=== PATIENT | female | born 1950 | race Caucasian/White ===

== ENCOUNTER → 2020-07-03 13:43 | Outpatient (BNVA) | payer MEDICARE, SELFPAY | PROVIDERS: PCP Internal Medicine; Visit Provider Urology | DX: N81.10 Cystocele, unspecified (principal) | CPT/HCPCS: 81002; 99202 ==

== ENCOUNTER 2020-07-08 | Outpatient (REF) | payer MEDICARE, SELFPAY ==
[2020-07-08 11:40] LABS: Alanine Aminotransferase 52 U/L (0-31); Albumin Level 4.1 g/dL (3.5-5.0); Alkaline Phosphatase 109 U/L (39-117); Anion Gap 14 (12-20); Aspartate Amino Transferase 32 U/L (5-31); Bilirubin Total 0.4 mg/dL (0.0-1.0); Blood Urea Nitrogen 16 mg/dL (9-16); Calcium 9.5 mg/dL (8.4-10.2); Carbon Dioxide 25 mmol/L (22-29); Chloride 106 mmol/L (96-108); Cholesterol 178 mg/dL; Estimated Glomerular Filt Rate > 60; Glucose Fasting 130 mg/dL (60-99); HDL Cholesterol 43 mg/dL; LDL Cholesterol Calculated 105 mg/dl; Potassium 4.4 mmol/l (3.3-5.1); Sodium 141 mmol/L (135-145); Triglycerides 153 mg/dL
[2020-07-08 11:59] LABS: Creatinine Urine 59.24 mg/dL; Microalbumin Urine < 5.0 mg/L
[2020-07-13 17:58] LABS: Vitamin D 25-OH, D2 <4 ng/mL; Vitamin D 25-OH, D3 31 ng/mL; Vitamin D 25-OH, Total 31 ng/mL (30-100)
== END 2020-07-08 00:01 | disposition home or self-care (01) ==
LOC: HO.LHD
PROVIDERS: Visit Provider Internal Medicine
DX: E11.9 Type 2 diabetes mellitus without complications (principal); E55.9 Vitamin D deficiency, unspecified; E78.5 Hyperlipidemia, unspecified
CPT/HCPCS: 36415; 80053; 80061; 82043; 82306

== ENCOUNTER 2020-07-10 17:14 | Outpatient (REF) | payer MEDICARE, SELFPAY | END 2020-07-10 17:15 | disposition home or self-care (01) | LOC: HO.LAB 17:14 | PROVIDERS: PCP Internal Medicine; Visit Provider Internal Medicine | DX: Z20.822 Contact with and (suspected) exposure to COVID-19 (principal) | CPT/HCPCS: 36415; C9803; U0003 ==

== ENCOUNTER 2020-08-04 09:22 | Outpatient (REF) | payer OTHER, SELFPAY ==
--- NOTE | ~2020-08-04 | US_ITS ---
EXAMINATION: US COMPLETE ABDOMEN WITH LIVER ELASTOGRAPHY CLINICAL INFORMATION: Elevated levels of liver transaminase COMPARISON: Abdominal ultrasound 02/10/2017 TECHNIQUE: Real-time imaging of the abdominal viscera. Noninvasive ultrasound liver fibrosis assessment is performed using Prem ElastPQ point quantification shear wave elastography (pSWE) with a C5-2 MHz transducer. Multiple elastography samples are obtained. FINDINGS: PANCREAS: Normal. The visualized pancreatic head and body are normal in appearance. The remainder of the pancreas is obscured from visualization by the overlying bowel gas. ABDOMINAL AORTA: The proximal, middle, and distal aortic segments are normal in caliber. INFERIOR VENA CAVA: Visualized portions are normal. LIVER: There is diffusely increased hepatic echogenicity and sound attenuation consistent with diffuse hepatic steatosis. Areas of focal fatty sparing are seen as well. No suspicious or concerning focal liver lesion. No biliary ductal dilatation. The right lobe measures 11.9 cm in length. The left lobe measures 10.4 cm in length. Portal flow is hepatopetal Shear wave liver elastography median stiffness is 1.41 m/s (reference: normal median stiffness is 1.3 m/s or less). IQR/median stiffness to assess sampling precision is 0.04 (reference: good quality data set is IQR/median stiffness of 0.15 or less). GALLBLADDER: Normal. The gallbladder is physiologically distended without evidence of stones, sludge, polyps, wall thickening or pericholecystic fluid. COMMON BILE DUCT: Normal in caliber measuring 0.2 cm in diameter. RIGHT KIDNEY: Normal. No hydronephrosis. No renal calculi or focal parenchymal lesions. The kidney measures 9.5 cm in maximum dimension. LEFT KIDNEY: Normal. No hydronephrosis. No renal calculi or focal parenchymal lesions. The kidney measures 9.1 cm in maximum dimension. SPLEEN: Normal. The spleen measures 8.7 cm in maximum dimension. FREE FLUID: None. US/US abdomen comp w elastography IMPRESSION: 1. Diffuse hepatic steatosis with areas of focal fatty sparing. No concerning focal liver lesion. 2. Liver elastography: In the absence of other known clinical signs, measurements rule out compensated advanced chronic liver disease. If there are known clinical signs, further testing may be needed for confirmation REFERENCE: Society of Radiologists in Ultrasound Liver Stiffness Thresholds (2020): LIVER STIFFNESS THRESHOLDS: *Liver Stiffness equal or less than 1.3 m/s: High probability of being normal. *Liver Stiffness less than 1.7 m/s: In the absence of other known clinical signs, rules out compensated advanced chronic liver disease. *Liver Stiffness 1.7-2.1 m/s: Suggestive of compensated advanced chronic liver disease but need further test for confirmation. *Liver Stiffness over 2.1 m/s: Rules in compensated advanced chronic liver disease. *Liver Stiffness over 2.4 m/s: Suggestive of clinically significant portal hypertension. QUALITY OF DATA SET: *IQR/Median value equal or less than 0.15 implies a quality data set. *IQR/Median value over 0.15 implies a poor quality data set. SIGNIFICANT CHANGE FROM PRIOR EXAM: Significant change if liver stiffness measurement is 10% or greater from prior exam. OTHER CONSIDERATIONS: The stage of liver fibrosis may be overestimated in the setting of acute hepatitis, liver inflammation, elevated liver function tests, hepatic vascular congestion, obstructive cholestasis, non-fasting state, and infiltrative diseases such as amyloidosis and lymphoma. In some patients with NAFLD, the liver stiffness thresholds for compensated advanced chronic liver disease may be lower. In causes other than viral hepatitis and NAFLD, liver stiffness thresholds are not well established.
== END 2020-08-04 09:23 | disposition home or self-care (01) ==
LOC: HO.US 09:22
PROVIDERS: PCP Internal Medicine; Visit Provider Internal Medicine
DX: R74.01 Elevation of levels of liver transaminase levels (principal)
CPT/HCPCS: 76705; 76981

== ENCOUNTER → 2020-09-25 12:59 | Outpatient (BNVA) | payer MEDICARE, SELFPAY | PROVIDERS: PCP Internal Medicine; Visit Provider Urology | DX: N81.10 Cystocele, unspecified (principal) | CPT/HCPCS: 52000; 81002; 99212 ==

== ENCOUNTER 2020-10-21 11:26 | Outpatient (REF) | payer MEDICARE, SELFPAY ==
--- NOTE | ~2020-10-21 | MM_ITS ---
EXAMINATION: MM SCREENING DIGITAL BREAST TOMOSYNTHESIS, BILATERAL CLINICAL INFORMATION: Screening. Asymptomatic. The lifetime risk of breast cancer based on the Tyrer-Cuzick Model is 3%. COMPARISON: Mammography: 08/06/2019, 05/23/2018, 05/14/2018, 04/24/2017; targeted right breast ultrasound 05/23/2018 TECHNIQUE: Digital breast tomosynthesis is performed in both the craniocaudal and mediolateral oblique views along with computer-aided detection (CAD). Synthesized 2D images are generated from the tomosynthesis. FINDINGS: There are scattered areas of fibroglandular density (ACR BI-RADS breast composition Category b). There is chronic fibronodular and fibrocystic parenchymal pattern similar to prior studies. No focal developing density, significant mass, or architectural abnormality. No abnormal calcifications. The axilla and skin contours are unremarkable. No significant changes. MM/MM tomosynthesis screening BI IMPRESSION: No significant changes from prior exams. No mammographic evidence of malignancy. ASSESSMENT: BI-RADS 2: Benign RECOMMENDATION: Routine annual mammography screening. This patient's information was entered into a reminder system with a target due date for their next mammogram.
== END 2020-10-21 11:27 | disposition home or self-care (01) ==
LOC: HO.MAMMO 11:26
PROVIDERS: PCP Internal Medicine; Visit Provider Internal Medicine
DX: Z12.31 Encounter for screening mammogram for malignant neoplasm of breast (principal)
CPT/HCPCS: 77063; 77067

== ENCOUNTER 2021-03-01 08:16 | Outpatient (REF) | payer MEDICARE, SELFPAY ==
[2021-03-01 09:11] LABS: MANUAL DIFF FLAG NO
[2021-03-01 09:13] LABS: Basophils Percent Auto 0.3 % (0-2); Eosinophils Absolute Auto 0.1 X10*3/uL (0.0-0.4); Eosinophils Percent Auto 1.5 % (0-4); Hematocrit 42.2 % (37-47); Hemoglobin 14.1 g/dl (12.0-16.0); Imm Gran Abs Auto 0.02 X10*3/uL (0.00-0.03); Imm Gran Pct Auto 0.3 % (0.0-0.4); Lymphocytes Absolute Auto 2.2 X10*3/uL (1.2-4.9); Lymphocytes Percent Auto 32.2 % (20-40); Mean Corpuscular HGB Conc 33.4 g/dl (31.0-35.0); Mean Corpuscular Hemoglobin 30.1 pg (27.0-33.0); Mean Corpuscular Volume 90.2 fL (80-98); Mean Platelet Volume 12.6 fL (9.4-12.3); Monocytes Absolute Auto 0.6 X10*3/uL (0.1-1.2); Monocytes Percent Auto 8.6 % (2-11); Neutrophils Absolute Auto 3.8 X10*3/uL (2.0-8.3); Neutrophils Percent Auto 57.1 % (45-73); Platelet Count 218 X10*3/uL (160-400); Red Blood Count 4.68 X10*6/uL (4.20-5.50); Red Cell Distribution Width 12.4 % (11.0-16.0); White Blood Count 6.7 X10*3/uL (4.8-10.8)
[2021-03-01 09:39] LABS: Alanine Aminotransferase 74 U/L (0-31); Albumin Level 4.3 g/dL (3.5-5.0); Alkaline Phosphatase 106 U/L (39-117); Anion Gap 14 (12-20); Aspartate Amino Transferase 50 U/L (5-31); Bilirubin Total 0.4 mg/dL (0.0-1.0); Blood Urea Nitrogen 12 mg/dL (9-16); Calcium 9.8 mg/dL (8.4-10.2); Carbon Dioxide 24 mmol/L (22-29); Chloride 105 mmol/L (96-108); Cholesterol 171 mg/dL; Estimated Glomerular Filt Rate > 60; Glucose Fasting 156 mg/dL (60-99); HDL Cholesterol 41 mg/dL; LDL Cholesterol Calculated 103 mg/dl; Potassium 4.3 mmol/L (3.3-5.1); Sodium 139 mmol/L (135-145); Total Protein 7.2 g/dL (6.5-8.0); Triglycerides 139 mg/dL
[2021-03-01 10:02] LABS: Thyroid Stimulating Hormone 2.16 uIU/mL (0.32-4.0)
[2021-03-01 10:39] LABS: Creatinine Urine 28.54 mg/dL; Microalbum/Creatinine Ratio Ur 17.5 ug/mg cr
[2021-03-05 12:46] LABS: Vitamin D 25-OH, D2 <4 ng/mL; Vitamin D 25-OH, D3 36 ng/mL; Vitamin D 25-OH, Total 36 ng/mL (30-100)
== END 2021-03-01 08:17 | disposition home or self-care (01) ==
LOC: HO.LAB 08:16
PROVIDERS: PCP Internal Medicine; Visit Provider Internal Medicine
DX: E78.5 Hyperlipidemia, unspecified (principal); E55.9 Vitamin D deficiency, unspecified; D64.9 Anemia, unspecified; R41.3 Other amnesia; E11.9 Type 2 diabetes mellitus without complications
CPT/HCPCS: 36415; 80053; 80061; 82043; 82306; 84443; 85025

== ENCOUNTER 2021-03-18 12:27 | Outpatient (REF) | payer MEDICARE, SELFPAY ==
--- NOTE | ~2021-03-18 | XR_ITS ---
EXAMINATION: XR BOTH KNEES AP STANDING XR LEFT KNEE, 2 VIEWS CLINICAL INFORMATION: Pain. COMPARISON: None. TECHNIQUE: Standing AP view of both knees and lateral and sunrise views of the left knee. FINDINGS: Right Knee: Tiny medial compartment marginal osteophytes. No osseous erosion. No fracture or dislocation. No abnormal soft tissue calcification. Left Knee: Mild medial compartment joint space narrowing. Tiny tricompartmental marginal osteophytes. No osseous erosion. No fracture or dislocation. Trace joint effusion. No abnormal soft tissue calcification. XR/XR knee standing BI IMPRESSION: RIGHT KNEE: Mild medial compartment osteoarthritis. LEFT KNEE: Mild tricompartmental osteoarthritis. Trace joint effusion.
--- NOTE | ~2021-03-18 | XR_ITS ---
EXAMINATION: XR BOTH KNEES AP STANDING XR LEFT KNEE, 2 VIEWS CLINICAL INFORMATION: Pain. COMPARISON: None. TECHNIQUE: Standing AP view of both knees and lateral and sunrise views of the left knee. FINDINGS: Right Knee: Tiny medial compartment marginal osteophytes. No osseous erosion. No fracture or dislocation. No abnormal soft tissue calcification. Left Knee: Mild medial compartment joint space narrowing. Tiny tricompartmental marginal osteophytes. No osseous erosion. No fracture or dislocation. Trace joint effusion. No abnormal soft tissue calcification. XR/XR knee LT 2V IMPRESSION: RIGHT KNEE: Mild medial compartment osteoarthritis. LEFT KNEE: Mild tricompartmental osteoarthritis. Trace joint effusion.
== END 2021-03-18 12:28 | disposition home or self-care (01) ==
LOC: HO.HOSX 12:27
PROVIDERS: Visit Provider Physician Assistant
DX: M17.12 Unilateral primary osteoarthritis, left knee (principal)
CPT/HCPCS: 73560; 73565; 99202

== ENCOUNTER → 2021-03-30 13:18 | Outpatient (BNVA) | payer MEDICARE, SELFPAY | PROVIDERS: PCP Internal Medicine | DX: N81.10 Cystocele, unspecified (principal) | CPT/HCPCS: 99212 ==

== ENCOUNTER 2021-08-31 10:49 | Outpatient (REF) | payer MEDICARE, SELFPAY ==
--- NOTE | 2021-08-31 10:55 | ECG_ITS ---
Test Reason : cp Blood Pressure : / mmHG Vent. Rate : 069 BPM Atrial Rate : 069 BPM P-R Int : 150 ms QRS Dur : 080 ms QT Int : 388 ms P-R-T Axes : 063 -08 043 degrees QTc Int : 415 ms Normal sinus rhythm Nonspecific ST and T wave abnormality Abnormal ECG When compared with ECG of 27-AUG-2019 15:34, No significant change was found Referred By: Yvette Jacksno Electronically Signed By:SIMON ORTEGA
[2021-08-31 12:53] LABS: Alanine Aminotransferase 71 U/L (0-31); Albumin Level 4.2 g/dL (3.5-5.0); Alkaline Phosphatase 105 U/L (39-117); Anion Gap 13 (12-20); Aspartate Amino Transferase 47 U/L (5-31); Bilirubin Total 0.5 mg/dL (0.0-1.0); Blood Urea Nitrogen 10 mg/dL (9-16); Calcium 10.2 mg/dL (8.4-10.2); Carbon Dioxide 26 mmol/L (22-29); Chloride 107 mmol/L (96-108); Cholesterol 181 mg/dL; Estimated Glomerular Filt Rate > 60; Glucose Fasting 142 mg/dL (60-99); HDL Cholesterol 40 mg/dL; LDL Cholesterol Calculated 109 mg/dl; Potassium 4.3 mmol/L (3.3-5.1); Sodium 142 mmol/L (135-145); Total Protein 7.1 g/dL (6.5-8.0); Triglycerides 162 mg/dL
[2021-08-31 13:03] LABS: Creatinine Urine 90.89 mg/dL; Microalbum/Creatinine Ratio Ur 17.6 ug/mg cr
== END 2021-08-31 10:50 | disposition home or self-care (01) ==
LOC: HO.LAB 10:49
PROVIDERS: PCP Internal Medicine; Visit Provider Internal Medicine
DX: R07.9 Chest pain, unspecified (principal); K21.9 Gastro-esophageal reflux disease without esophagitis; E11.9 Type 2 diabetes mellitus without complications; E78.5 Hyperlipidemia, unspecified
CPT/HCPCS: 36415; 80053; 80061; 82043; 93005

== ENCOUNTER 2021-10-15 14:09 | Outpatient (REF) | payer MEDICARE, SELFPAY ==
--- NOTE | ~2021-10-15 | MM_ITS ---
EXAMINATION: BONE DENSITOMETRY CLINICAL INDICATION: Menopause. COMPARISON: Previous BD dated 05/03/2019 and baseline BD dated 10/16/2009. TECHNIQUE: Using a Fantom DXA System (software version: 13.1) manufactured by [employer], dual-energy x-ray absorptiometry was performed of the lumbar spine and left hip. The images are of good technical quality. Summary results are attached. FINDINGS: AP SPINE L1-L4: Current: BMD 1.036 g/cm2, Z-score 0.4, T-score -1.2, osteopenia, 1.0% increase from previous, 0.6% increase from baseline (<5% change is not significant). Prior: BMD 1.026 g/cm2. Baseline: BMD 1.030 g/cm2. LEFT FEMUR, NECK: Current: BMD 0.848 g/cm2, Z-score 0.4, T-score -1.4, osteopenia. Prior: BMD 0.896 g/cm2. Baseline: BMD 1.061 g/cm2. LEFT FEMUR, TOTAL: Current: BMD 0.937 g/cm2, Z-score 1.0, T-score -0.6, normal, 2.0% decrease from previous, 16.4% decrease from baseline (<5% change is not significant). Prior: BMD 0.956 g/cm2. Baseline: BMD 1.121 g/cm2. IDENTIFIED RISK FACTORS: Early menopause, bilateral oophorectomy, height loss, hysterectomy, secondary osteoporosis. HISTORY OF FRACTURE: None listed. MEDICATIONS: Vitamin D. MM/XR DEXA axial skeleton IMPRESSION: 1. DIAGNOSIS: Osteopenia based on the lowest T-score value of -1.4 in the femoral neck applying World Health Organization criteria. 2. 10-YEAR FRACTURE RISK PREDICTION, FRAX: Major osteoporotic fracture (clinical spine, forearm, hip or shoulder) 5.9%. Hip fracture 1.0%. 3. Treatment Recommendations: NOF guidelines recommend consideration for treatment in postmenopausal women and men age 50 and older presenting with the following: -A hip or vertebral (clinical or morphometric) fracture. -T-score less than or equal to -2.5 at the femoral neck or spine after appropriate evaluation to exclude secondary causes. -Low bone mass at the hip or spine and a 10-year fracture probability by FRAX of greater than or equal to 3% for hip fracture or greater than or equal to 20% for major osteoporotic fracture based on the [place] adapted WHO algorithm. 4. Other Recommendations: All treatment decisions require clinical judgment and consideration of individual patient factors, including patient preferences, comorbidities, previous drug use, risk factors not captured in the FRAX model (e.g. frailty, falls, vitamin D deficiency, increased bone turnover, interval significant decline in bone density) and possible under or overestimation of fracture risk by FRAX. Additional medical evaluation for secondary cause of low bone mineral density may be appropriate. FUTURE SCAN RECOMMENDATION: People with diagnosed cases of osteoporosis or at high risk for fracture should have regular bone mineral density tests. For patients eligible for Medicare, routine testing is allowed once every 2 years. The testing frequency can be increased to one year for patients who have rapidly progressing disease, those who are receiving or discontinuing medical therapy to restore bone mass, or have additional risk factors.
== END 2021-10-15 14:10 | disposition home or self-care (01) ==
LOC: HO.MAMMO 14:09
PROVIDERS: PCP Internal Medicine; Visit Provider Internal Medicine
DX: Z13.820 Encounter for screening for osteoporosis (principal); Z78.0 Asymptomatic menopausal state; M85.80 Other specified disorders of bone density and structure, unspecified site
CPT/HCPCS: 77080

== ENCOUNTER 2021-10-25 13:48 | Outpatient (REF) | payer MEDICARE, SELFPAY ==
--- NOTE | ~2021-10-25 | MM_ITS ---
EXAMINATION: MM SCREENING DIGITAL BREAST TOMOSYNTHESIS, BILATERAL CLINICAL INFORMATION: Screening. Asymptomatic. The lifetime risk of breast cancer based on the Tyrer-Cuzick Model is 2%. COMPARISON: Mammography: 10/21/2020, 08/06/2019, 05/23/2018 TECHNIQUE: Digital breast tomosynthesis is performed in both the craniocaudal and mediolateral oblique views along with computer-aided detection (CAD). Synthesized 2D images are generated from the tomosynthesis. FINDINGS: There are scattered areas of fibroglandular density (ACR BI-RADS breast composition Category b). Parenchymal pattern is similar to prior studies. There is no developing density or interval architectural abnormality or abnormal calcifications. Fine nodularity mid medial right breast is stable. There axilla and skin contours are unremarkable. No significant changes. MM/MM tomosynthesis screening BI IMPRESSION: No mammographic evidence of malignancy. ASSESSMENT: BI-RADS 2: Benign RECOMMENDATION: Routine annual mammography screening. This patient's information was entered into a reminder system with a target due date for their next mammogram.
== END 2021-10-25 13:49 | disposition home or self-care (01) ==
LOC: HO.MAMMO 13:48
PROVIDERS: Visit Provider Internal Medicine
DX: Z12.31 Encounter for screening mammogram for malignant neoplasm of breast (principal)
CPT/HCPCS: 77063; 77067

== ENCOUNTER 2022-03-14 08:15 | Outpatient (REF) | payer OTHER, SELFPAY ==
[2022-03-14 08:28] LABS: MANUAL DIFF FLAG NO
[2022-03-14 08:36] LABS: Basophils Percent Auto 0.3 % (0-2); Eosinophils Absolute Auto 0.1 X10*3/uL (0.0-0.4); Eosinophils Percent Auto 1.4 % (0-4); Hematocrit 40.3 % (37.0-47.0); Hemoglobin 13.5 g/dl (12.0-16.0); Imm Gran Abs Auto 0.02 X10*3/uL (0.00-0.03); Imm Gran Pct Auto 0.3 % (0.0-0.4); Lymphocytes Absolute Auto 2.4 X10*3/uL (1.2-4.9); Lymphocytes Percent Auto 38.6 % (20-40); Mean Corpuscular HGB Conc 33.5 g/dl (31.0-35.0); Mean Corpuscular Hemoglobin 30.1 pg (27.0-33.0); Mean Platelet Volume 11.6 fL (9.4-12.3); Monocytes Absolute Auto 0.5 X10*3/uL (0.1-1.2); Monocytes Percent Auto 7.5 % (2-11); Neutrophils Absolute Auto 3.2 x10*3/uL (2.0-8.3); Neutrophils Percent Auto 51.9 % (45-73); Platelet Count 212 X10*3/uL (160-400); Red Blood Count 4.48 X10*6/uL (4.20-5.50); Red Cell Distribution Width 12.6 % (11.0-16.0); White Blood Count 6.3 X10*3/uL (4.8-10.8)
[2022-03-14 09:16] LABS: Iron 108 mcg/dL (30-160); Percent Iron Saturation 33 % (15-50); Total Iron Binding Capacity 327 mcg/dL (228-428); Unsaturated Iron Binding 219 ug/dL
== END 2022-03-14 08:16 | disposition home or self-care (01) ==
LOC: HO.LAB 08:15
PROVIDERS: PCP Internal Medicine; Visit Provider Internal Medicine
DX: Z20.822 Contact with and (suspected) exposure to COVID-19 (principal); K92.1 Melena; D64.9 Anemia, unspecified
CPT/HCPCS: 83540; 85025; U0003; U0005

== ENCOUNTER 2022-04-06 08:43 | Outpatient (REF) | payer OTHER, SELFPAY ==
[2022-04-06 09:36] LABS: Alanine Aminotransferase 47 U/L (0-31); Albumin Level 4.3 g/dL (3.5-5.0); Alkaline Phosphatase 114 U/L (39-117); Anion Gap 16 (12-20); Aspartate Amino Transferase 39 U/L (5-31); Bilirubin Total 0.3 mg/dL (0.0-1.0); Blood Urea Nitrogen 12 mg/dL (9-16); Calcium 9.7 mg/dL (8.4-10.2); Carbon Dioxide 25 mmol/L (22-29); Chloride 106 mmol/L (96-108); Cholesterol 166 mg/dL; Estimated Glomerular Filt Rate > 60; Glucose Fasting 140 mg/dL (60-99); HDL Cholesterol 40 mg/dL; LDL Cholesterol Calculated 95 mg/dl; Sodium 143 mmol/L (135-145); Total Protein 7.4 g/dL (6.5-8.0); Triglycerides 157 mg/dL
[2022-04-06 10:00] LABS: Creatinine Urine 74.38 mg/dL; Microalbum/Creatinine Ratio Ur 36.3 ug/mg cr
== END 2022-04-06 08:44 | disposition home or self-care (01) ==
LOC: HO.LDS 08:43
PROVIDERS: PCP Internal Medicine; Visit Provider Internal Medicine
DX: E11.9 Type 2 diabetes mellitus without complications (principal); E78.5 Hyperlipidemia, unspecified; E55.9 Vitamin D deficiency, unspecified
CPT/HCPCS: 36415; 80053; 80061; 82043; 82306

== ENCOUNTER → 2022-07-20 13:48 | Outpatient (BNVA) | payer OTHER, SELFPAY | PROVIDERS: PCP Internal Medicine; Visit Provider Obstetrics & Gynecology | DX: N93.9 Abnormal uterine and vaginal bleeding, unspecified (principal) | CPT/HCPCS: 99212 ==

== ENCOUNTER → 2022-07-27 14:10 | Outpatient (BNVA) | payer OTHER, SELFPAY | PROVIDERS: PCP Internal Medicine; Referring Provider Internal Medicine; Visit Provider Internal Medicine | DX: K92.1 Melena (principal); K62.5 Hemorrhage of anus and rectum | CPT/HCPCS: 99202 ==

== ENCOUNTER 2022-09-13 09:51 | Outpatient (REF) | payer OTHER, MEDICAID, SELFPAY ==
[2022-09-13 10:21] LABS: Hematocrit 40.8 % (37.0-47.0); Hemoglobin 13.5 g/dl (12.0-16.0); Mean Corpuscular HGB Conc 33.1 g/dl (31.0-35.0); Mean Corpuscular Hemoglobin 29.7 pg (27.0-33.0); Mean Corpuscular Volume 89.7 fL (80.0-98.0); Mean Platelet Volume 11.5 fL (9.4-12.3); Platelet Count 201 X10*3/uL (160-400); Red Blood Count 4.55 X10*6/uL (4.20-5.50); Red Cell Distribution Width 12.5 % (11.0-16.0); White Blood Count 6.5 X10*3/uL (4.8-10.8)
[2022-09-13 11:02] LABS: Alanine Aminotransferase 40 U/L (0-31); Albumin Level 4.2 g/dL (3.5-5.0); Alkaline Phosphatase 97 U/L (39-117); Anion Gap 13 (12-20); Aspartate Amino Transferase 35 U/L (5-31); Bilirubin Total 0.6 mg/dL (0.0-1.0); Blood Urea Nitrogen 12 mg/dL (9-16); Calcium 9.6 mg/dL (8.4-10.2); Carbon Dioxide 27 mmol/L (22-29); Chloride 107 mmol/L (96-108); Cholesterol 122 mg/dL; Estimated Glomerular Filt Rate > 60; Glucose Fasting 146 mg/dL (60-99); HDL Cholesterol 45 mg/dL; Iron 101 mcg/dL (30-160); LDL Cholesterol Calculated 54 mg/dl; Percent Iron Saturation 36 % (15-50); Potassium 4.3 mmol/L (3.3-5.1); Sodium 143 mmol/L (135-145); Total Iron Binding Capacity 283 mcg/dL (228-428); Total Protein 6.9 g/dL (6.5-8.0); Triglycerides 115 mg/dL; Unsaturated Iron Binding 182 ug/dL
[2022-09-13 11:17] LABS: Vitamin D 25-OH Total 55.1 ng/mL (>30)
[2022-09-13 11:18] LABS: Ferritin 75 ng/mL (10-250)
[2022-09-13 11:50] LABS: Creatinine Urine 123.42 mg/dL; Microalbum/Creatinine Ratio Ur 13.7 ug/mg cr
== END 2022-09-13 09:52 | disposition home or self-care (01) ==
LOC: HO.LAB 09:51
PROVIDERS: Internal Medicine; PCP Internal Medicine; Visit Provider Internal Medicine
DX: E78.00 Pure hypercholesterolemia, unspecified (principal); E11.9 Type 2 diabetes mellitus without complications; E55.9 Vitamin D deficiency, unspecified; E78.5 Hyperlipidemia, unspecified; K92.1 Melena
CPT/HCPCS: 36415; 80053; 80061; 82043; 82306; 82728; 83540; 85027

== ENCOUNTER 2022-09-22 07:15 | Day surgery (SDC) | payer OTHER, MEDICAID, SELFPAY ==
[2022-09-16 12:48] VITALS: BMI 26.5
--- NOTE | 2022-09-22 07:56 | P.CONAN_ITS ---
[facility] Active Problems Active Problems: All Active Problems (Updated 09/21/22 @ 09:24 by Yvette Jackson MD) Mild major depression (Acute) Osteoarthritis of left knee (Acute) Oral candidiasis (Acute) Melena (Acute) Vaginal dryness (Acute) Vaginal bleeding (Acute) Rectal bleeding (Acute) Medicare annual wellness visit, subsequent (Acute) Encounter for Medicare annual wellness exam (Acute) Postmenopausal (Acute) Chest pain (Acute) Pure hypercholesterolemia (Acute) Left knee pain (Acute) GERD (gastroesophageal reflux disease) (Acute) Memory loss (Acute) Tinea pedis (Acute) Transaminitis (Acute) Vaginal prolapse (Acute) Hypovitaminosis D (Acute) Diabetes mellitus (Acute) Essential hypertension (Acute) Past Medical History Medical History Chest pain Diabetes mellitus Encounter for Medicare annual wellness exam Essential hypertension GERD (gastroesophageal reflux disease) Hypovitaminosis D Left knee pain Memory loss Postmenopausal Pure hypercholesterolemia Tinea pedis Transaminitis Vaginal prolapse Patient : No Family History Family History Mother No problems noted. Father No problems noted. Surgical History Surgical History H/O: hysterectomy Hx of colonoscopy Social History Social History Housing: Apartment Alcohol intake: never Patient Tobacco Use Status: Never used Tobacco e-Cigarette/Vaping Use: Never Used Second Hand Smoke Exposure: No service: No Current occupational status: retired Current occupation: rt hand Cognitive needs: No Hearing needs: No Vision needs: Yes (Glasses) Meds Allergies Allergy/AdvReac Type Severity Reaction Status Date / Time No Known Allergies Allergy Verified 09/14/22 14:47 Exam Exam Date and Time: September 22, 2022 0756 Height,Weight and Vital Signs: Height 5 ft 2 in Weight 65.771 kg Airway Mallampati Class: II TM Dist: >3cm Neck ROM: Full Heart: RRR Lungs: CTA Assessment and Plan Final Anesthetic Review ASA Class: II Final Preanesthetic Review: Meds/Allgs Chart Reviewed, Consent Obtained/Reviewed and Anes Risks/Benef Reviewed Patient Risk: Low Procedure Risk: Low Anesthetic Plan Anesthetic Plan: MAC: Disposition: Standard PACU
[2022-09-22 07:57] VITALS: BP 126/75; PULSE 74; RESP 16; TEMP 36.3; O2SAT 97
[2022-09-22 08:04] LABS: Glucose, Whole Blood 151 mg/dL (60-115)
--- NOTE | 2022-09-22 08:19 | MHC.SHP ---
Pre-Procedural Eval Section A Date of Service: 09/22/22 Section B Chief Complaint: Personal history of colonic polyps,rectal bleeding Details of Present Illness: PMH: Chest pain Diabetes mellitus Encounter for Medicare annual wellness exam Essential hypertension GERD (gastroesophageal reflux disease) Hypovitaminosis D Left knee pain Memory loss Postmenopausal Pure hypercholesterolemia Tinea pedis Transaminitis Vaginal prolapse Surgical History H/O: hysterectomy Hx of colonoscopy Allergies: Allergies Allergy/AdvReac Type Severity Reaction Status Date / Time No Known Allergies Allergy Verified 09/14/22 14:47 Review of Systems Review of Systems Comment: 10 point ROS negative Exam Exam Comment: Gen appear: No acute distress HEENT: no icterus Chest: No overt resp distress Abd: soft, nontender, nondistended Psych: Stable affect, answering questions appropriately Neuro: A/Ox3 noted to move all extremities spontaneously Ext: no peripheral edema Plan Diagnosis/Plan: Unchanged I have reviewed the history and physical and performed a pertinent physical examination on my patient. No changes have occurred unless specified. Time Spent With Patient Time: Total time managing care of this patient today ____ minutes.
--- NOTE | 2022-09-22 08:25 | P.OP_ITS ---
Operative Note Operative Note Date of Service: 09/22/22 Narrative: Procedure: Colonoscopy Indication: Personal history of polyps Lower GI bleeding Endoscopist: Melany Calvert MD Anesthesia Provider: Dr Marcela Warren Anesthesia type: MAC Instrument: Olympus [id number]-H190L Consent: Indication, risks vs benefits, and alternatives were discussed with the patient who gave written informed consent to proceed. EKG, pulse, pulse oximetry and blood pressure were monitored throughout the procedure. Please see anesthesia flowsheet. Procedure: The patient was brought to the procedure room and placed in the left lateral decubitus position. IV medications were administered by the anesthesia provider in attendance. A digital rectal exam was performed which was abnormal due to finding of hemorrhoids. A distal attachment cap was affixed to the tip of the scope and the colonoscope was then inserted through the anus and advanced through the colon to the cecum at 80 cm,and terminal ileum. Mucosa was carefully examined under high definition white light as the instrument was slowly withdrawn in a retrograde panoramic fashion. Retroflexion was performed in rectum. The procedure was not difficult. There were no immediate obvious complications. The quality of the prep was BBPS: 2+3+2 = adequate Withdrawal time 8 minutes. Limitations: No limitations. Findings: Mucosa: A small non-bleeding arterioveneous malformation was seen in ascending colon. This was ablated with APC. Mucosa otherwise normal to cecum and terminal ileum. Protruding lesions: * 1 sessile polyp of size 5 mm in sigmoid colon. Cold snare polypectomy was performed. The polyp was completely removed and retrieved. * 1 sessile polyp of size 8 mm in cecum . Cold snare polypectomy was performed. The polyp was completely removed and retrieved. * Large internal hemorrhoids without stigmata of recent bleeding. Impression: 1. Ascending colon AVM (APC) 2. Total of 2 polyps removed from cecum and sigmoid colon. 3. External and internal hemorrhoids Recommendations: - Follow path results. - Repeat colonoscopy in 5-7 years if polyps are adenomas or sessile serrated.
[2022-09-22 09:10] VITALS: BP 96/51; PULSE 62; RESP 16; TEMP 36.1; O2SAT 97
[2022-09-22 09:25] VITALS: BP 115/58; PULSE 53; RESP 18; TEMP 36; O2SAT 97
--- NOTE | 2022-09-22 09:38 | HO.POSTANES ---
Post Anesthesia Evaluation Post Anesthesia Evaluation Vital Signs: Vital Signs Temp Pulse Resp BP Pulse Ox O2 Del Method 09/22/22 09:10 96.9 F 62 16 96/51 L 97 Room Air 09/22/22 07:57 97.4 F 74 16 126/75 97 Room Air Anesthesia: Monitored Mental Status: Awake Pain Control: Satisfactory Nausea/Vomiting: None Hydration: Adequate Anesthesia-Related Issues: No Anes. Related Issues
== END 2022-09-22 10:11 | disposition home or self-care (01) ==
PROVIDERS: PCP Internal Medicine; Visit Provider Internal Medicine
PROC: 0DJD8ZZ Inspection of Lower Intestinal Tract, Via Natural or Artificial Opening Endoscopic (ICD-10-PCS; CPT 45378; principal; 2022-09-22 08:40)
DX: K62.5 Hemorrhage of anus and rectum (principal); D12.0 Benign neoplasm of cecum; D12.5 Benign neoplasm of sigmoid colon; K64.4 Residual hemorrhoidal skin tags; K64.8 Other hemorrhoids; Q27.39 Arteriovenous malformation, other site; Z86.010 Personal history of colon polyps; E11.9 Type 2 diabetes mellitus without complications; I10 Essential (primary) hypertension
CPT/HCPCS: 45385; 82947; 88305

== ENCOUNTER → 2022-09-26 13:48 | Outpatient (BNVA) | payer OTHER, MEDICAID, SELFPAY | PROVIDERS: PCP Internal Medicine; Visit Provider Urology | DX: N81.10 Cystocele, unspecified (principal); N95.2 Postmenopausal atrophic vaginitis; N36.8 Other specified disorders of urethra | CPT/HCPCS: 99212 ==

== ENCOUNTER 2022-11-16 14:27 | Outpatient (REF) | payer OTHER, MEDICAID, SELFPAY ==
--- NOTE | ~2022-11-16 | MM_ITS ---
EXAMINATION: MM SCREENING DIGITAL BREAST TOMOSYNTHESIS, BILATERAL CLINICAL INFORMATION: Screening. Asymptomatic. The lifetime risk of breast cancer based on the Tyrer-Cuzick Model is 2%. COMPARISON: Mammography: 10/25/2021, 10/21/2020, 08/06/2019 TECHNIQUE: Digital breast tomosynthesis is performed in both the craniocaudal and mediolateral oblique views along with computer-aided detection (CAD). Synthesized 2D images are generated from the tomosynthesis. FINDINGS: There are scattered areas of fibroglandular density (ACR BI-RADS breast composition Category b). There is a fibronodular parenchymal pattern similar to prior exams with no developing density or architectural abnormality. There are no significant masses, abnormal calcifications, or other abnormalities. There are scattered benign round and vascular calcifications. The axilla and skin contours are unremarkable. No significant changes from prior exams. MM/MM tomosynthesis screening BI IMPRESSION: No mammographic evidence of malignancy. ASSESSMENT: BI-RADS 2: Benign RECOMMENDATION: Routine annual mammography screening. This patient's information was entered into a reminder system with a target due date for their next mammogram.
== END 2022-11-16 14:28 | disposition home or self-care (01) ==
LOC: HO.MAMMO 14:27
PROVIDERS: PCP Internal Medicine; Visit Provider Internal Medicine
DX: Z12.31 Encounter for screening mammogram for malignant neoplasm of breast (principal)
CPT/HCPCS: 77063; 77067

== ENCOUNTER → 2022-12-05 13:28 | Outpatient (BNVA) | payer OTHER, SELFPAY | PROVIDERS: Visit Provider Internal Medicine | DX: K92.1 Melena (principal); Z86.010 Personal history of colon polyps | CPT/HCPCS: 99212 ==

== ENCOUNTER 2022-12-15 09:11 | Outpatient (REF) | payer OTHER, SELFPAY ==
[2022-12-15 11:01] LABS: Alanine Aminotransferase 28 U/L (0-31); Alkaline Phosphatase 96 U/L (39-117); Anion Gap 12 (12-20); Aspartate Amino Transferase 26 U/L (5-31); Bilirubin Total 0.5 mg/dL (0.0-1.0); Blood Urea Nitrogen 10 mg/dL (9-16); Calcium 10.1 mg/dL (8.4-10.2); Carbon Dioxide 27 mmol/L (22-29); Chloride 107 mmol/L (96-108); Cholesterol 123 mg/dL; Estimated Glomerular Filt Rate > 60; Glucose Fasting 147 mg/dL (60-99); HDL Cholesterol 40 mg/dL; LDL Cholesterol Calculated 54 mg/dl; Sodium 142 mmol/L (135-145); Total Protein 7.4 g/dL (6.5-8.0); Triglycerides 149 mg/dL
[2022-12-15 11:16] LABS: Vitamin D 25-OH Total 48.2 ng/mL (>30)
[2022-12-15 11:37] LABS: Creatinine Urine 61.84 mg/dL; Microalbum/Creatinine Ratio Ur 17.7 ug/mg cr
== END 2022-12-15 09:12 | disposition home or self-care (01) ==
LOC: HO.LAB 09:11
PROVIDERS: PCP Internal Medicine; Visit Provider Internal Medicine
DX: E55.9 Vitamin D deficiency, unspecified (principal); E11.9 Type 2 diabetes mellitus without complications; E78.5 Hyperlipidemia, unspecified
CPT/HCPCS: 36415; 80053; 80061; 82043; 82306

== ENCOUNTER 2023-01-17 13:58 | Outpatient (AMB) | payer OTHER, MEDICAID, SELFPAY ==
--- NOTE | 2023-01-17 14:04 | MHC.PC.OV ---
Vital Signs 01/17/23 14:08 Height 5 ft 2 in Weight 149 lb BMI 27.2 BP 130/70 Blood Pressure Location Lt brachial Position Sitting Intake Visit Reasons: 4 month f/u Intake Note: Patient here for a 4 month follow up, c/o cold/allergies Lead Qa Analyst Required: No Accompanied by: Self / Same As Patient Allergies No Known Allergies Allergy (Verified 01/17/23 14:21) Medication List - Last Reconciled 01/17/23 by Yvette Jackson MD amlodipine 5 mg PO DAILY 90 days aspirin 81 mg PO DAILY blood sugar diagnostic Use 1 freestyle test strip once a day calcium carbonate-vitamin D3 500 mg-5 mcg (200 unit) 2 tabs PO DAILY 90 days metformin 850 mg PO BID 90 days nystatin 1 mL buccal DAILY 60 days omeprazole 20 mg PO DAILY 30 days oxybutynin chloride 10%(100mg/gram) (Gelnique) 1 packet topical DAILY rosuvastatin 10 mg PO DAILY 90 days sertraline 25 mg PO DAILY 90 days Tobacco use date assessed: 01/17/23 Fall risk assessment: No Falls in past year Last assessed Fall Risk: 01/17/23 Dental Screening Dental Screen Date: 01/17/23 Did you have a dental visit in the last 12 months?: Yes Did you have a dental problem in the last 6 months where you did not have access to dental care?: No Was dental information given to patient?: Patient has dentist HPI HPI Comments History of Present Illness Details This is a 72-year-old female with diabetes mellitus type 2, hypertension, pure hypercholesterolemia and mild major depression that comes today complaining of seasonal allergies. A1c elevated but she admits that she stop metformin and started taking it again yesterday. Blood pressure stable. LDL within goal. Depression well controlled with SSRIs. I will prescribe antihistamines as needed for her allergies. No chest pain or shortness of breath. [facility] Medical History Chest pain Diabetes mellitus Encounter for Medicare annual wellness exam Essential hypertension GERD (gastroesophageal reflux disease) Hypovitaminosis D Left knee pain Memory loss Postmenopausal Pure hypercholesterolemia Tinea pedis Transaminitis Vaginal prolapse Surgical History H/O: hysterectomy Hx of colonoscopy Family History Mother No problems noted. Father No problems noted. Social History Housing: Apartment Alcohol intake: never Patient Tobacco Use Status: Never used Tobacco e-Cigarette/Vaping Use: Never Used Second Hand Smoke Exposure: No service: No Current occupational status: retired Current occupation: rt hand Cognitive needs: No Hearing needs: No Vision needs: Yes (Glasses) Questionnaire Thrive Questionnaire Date Thrive assessed: 09/14/22 NORRIS-7 AMB Questionnaire NORRIS-7 Date NORRIS - 7 assessed: 09/14/22 Source: Developed by Drs. Steve Mead, Maria C Cope, Santos Villaseñor and colleagues, with an educational matti from [employer]. Review of Systems Const All systems reviewed & are unremarkable except as noted in HPI and below Eyes Reports no additional complaints, Denies change in vision and Denies other visual disturbances Card Denies chest pain at rest, Denies chest pain with activity, Denies edema, Denies irregular heart rhythm, Denies claudication, Denies dyspnea, Denies dyspnea on exertion, Denies orthopnea, Denies paroxysmal nocturnal dyspnea and Denies slow heart rate Resp Denies cough, Denies dyspnea and Denies dyspnea on exertion GI Denies abdominal pain, Denies change in bowel habits, Denies excessive flatus, Denies nausea and Denies vomiting Denies urinary incontinence, Denies urinary hesitancy and Denies urinary urgency Musc Denies abnormal gait, Denies atrophy, Denies deformity and Denies limited range of motion Skin/Breast Denies bleeding lesions, Denies changing lesions and Denies rash Neuro Denies abnormal gait and Denies lack of coordination Physical exam (Primary Care) Vital Signs: Last Vital Signs BP 130/70 01/17/23 14:08 BMI result Body Mass Index 27.2 Tobacco/Smoking Status: Tobacco use Status Tobacco use date assessed 01/17/23 01/17/23 14:11 Patient Tobacco Use Status Never used Tobacco 01/17/23 14:11 e-Cigarette/Vaping Use Never Used 01/17/23 14:11 Thrive Assessment: Date of Thrive Assessment Date Thrive assessed 09/14/22 01/17/23 14:11 Eyes General: appearance normal, both eyes and all related structures Eyelids: Yes eyelids normal Conjunctivae: conjunctivae normal Neck Neck: Yes normal visual inspection and Yes supple Resp Effort & Inspection: normal respiratory effort Auscultation: clear to auscultation bilaterally Cardio Jugular venous distension: no JVD Rate: regular rate Rhythm: regular rhythm Heart sounds: S1 normal heart sound present and S2 normal heart sound present Extrem General: Yes full ROM Results AMB Hemoglobin A1c AMB Hemoglobin A1c 7.3 % Last Edit by SONIA Pennington on 01/17/23 14:22 Results Reviewed Results Reviewed: Laboratory Last Values Hgb A1c (Clinic) 7.3 % (4.0-6.0) H 01/17/23 14:04 Assessment and Plan Assessment & Plan (1) Diabetes mellitus: Code(s): E11.9 - Type 2 diabetes mellitus without complications Qualifiers: Diabetes mellitus type: type 2 Diabetes mellitus assisted insulin use: without assisted use Diabetes mellitus complication status: without complication Qualified Code(s): E11.9 - Type 2 diabetes mellitus without complications Plan: Continue metformin. A1c goal is equal or less than 7%. (2) Essential hypertension: Code(s): I10 - Essential (primary) hypertension Plan: Continue amlodipine. Blood pressure goal is equal or less than 130/80. (3) Pure hypercholesterolemia: Code(s): E78.00 - Pure hypercholesterolemia, unspecified Plan: Continue statins. LDL goal is less than 70. (4) Mild major depression: Code(s): F32.0 - Major depressive disorder, single episode, mild Plan: Continue SSRIs Orders: Orders Lipid Panel 4 Months E78.5 - Hyperlipidemia, unspecified Vitamin D 25-OH Total 4 Months E55.9 - Vitamin D deficiency, unspecified Microalbumin, Random (w Creat) 4 Months E11.9 - Type 2 diabetes mellitus without complications Comprehensive [place]. Panel Fast 4 Months E11.9 - Type 2 diabetes mellitus without complications AMB Hemoglobin A1c Today E11.9 - Type 2 diabetes mellitus without complications Medications: New loratadine (Allergy Relief (loratadine)) 10 mg PO DAILY PRN 90 tabs 1RF allergic symptoms 90 days Coding Level of Care Code Est Pt Level 4 (67009) Diagnoses Diabetes mellitus E11.9 Diabetes mellitus type: type 2 Diabetes mellitus assisted insulin use: without regional intermodal truck driver use Diabetes mellitus complication status: without complication Essential hypertension I10 Pure hypercholesterolemia E78.00 Mild major depression F32.0 Time Spent (min) 22
[2023-01-17 14:08] VITALS: BP 130/70; BMI 27.2
== END 2023-01-17 14:32 | disposition home or self-care (01) ==
PROVIDERS: Visit Provider Internal Medicine
DX: E11.9 Type 2 diabetes mellitus without complications (principal); I10 Essential (primary) hypertension; E78.00 Pure hypercholesterolemia, unspecified; F32.0 Major depressive disorder, single episode, mild
CPT/HCPCS: 83036; 99214

== ENCOUNTER 2023-05-25 09:01 | Outpatient (REF) | payer OTHER, SELFPAY ==
[2023-05-25 10:53] LABS: Creatinine Urine 87.72 mg/dL; Microalbum/Creatinine Ratio Ur 31.9 ug/mg cr (<30)
[2023-05-25 11:07] LABS: Alanine Aminotransferase 17 U/L (0-31); Albumin Level 4.2 g/dL (3.5-5.0); Alkaline Phosphatase 89 U/L (39-117); Anion Gap 13 (12-20); Aspartate Amino Transferase 19 U/L (5-31); Bilirubin Total 0.5 mg/dL (0.0-1.0); Blood Urea Nitrogen 13 mg/dL (9-16); Calcium 9.9 mg/dL (8.4-10.2); Carbon Dioxide 28 mmol/L (22-29); Chloride 106 mmol/L (96-108); Cholesterol 108 mg/dL (<200); Estimated Glomerular Filt Rate > 60; Glucose Fasting 132 mg/dL (60-99); HDL Cholesterol 39 mg/dL (>40); LDL Cholesterol Calculated 44 mg/dL (<100); Potassium 3.9 mmol/L (3.3-5.1); Sodium 143 mmol/L (135-145); Total Protein 7.4 g/dL (6.5-8.0); Triglycerides 126 mg/dL (<150); Vitamin D 25-OH Total 52.7 ng/mL (>30)
== END 2023-05-25 09:02 | disposition home or self-care (01) ==
LOC: HO.LAB 09:01
PROVIDERS: PCP Internal Medicine; Visit Provider Internal Medicine
DX: E11.9 Type 2 diabetes mellitus without complications (principal); E55.9 Vitamin D deficiency, unspecified; E78.5 Hyperlipidemia, unspecified
CPT/HCPCS: 36415; 80053; 80061; 82043; 82306; 82570

== ENCOUNTER 2023-05-30 14:37 | Outpatient (AMB) | payer OTHER, SELFPAY ==
--- NOTE | 2023-05-30 14:39 | MHC.PC.OV ---
Vital Signs 05/30/23 14:46 Height 5 ft 2 in Weight 145 lb BMI 26.5 BP 130/82 Blood Pressure Location Lt brachial Position Sitting Intake Visit Reasons: dm Intake Note: Patient here for a follow up DM, c/o dizziness after glucose goes lower than 130 Sharepoint Admin Required: No Accompanied by: Self / Same As Patient Allergies No Known Allergies Allergy (Verified 05/30/23 15:03) Medication List - Last Reconciled 05/30/23 by Yvette Jackson MD amlodipine 5 mg PO DAILY 90 days aspirin 81 mg PO DAILY blood sugar diagnostic Use 1 freestyle test strip once a day calcium carbonate-vitamin D3 500 mg-5 mcg (200 unit) 2 tabs PO DAILY 90 days loratadine (Allergy Relief (loratadine)) 10 mg PO DAILY PRN 90 days metformin 850 mg PO BID 90 days nystatin 1 mL buccal DAILY 60 days omeprazole 20 mg PO DAILY 30 days oxybutynin chloride 10%(100mg/gram) (Gelnique) 1 packet topical DAILY rosuvastatin 10 mg PO DAILY 90 days sertraline 25 mg PO DAILY 90 days Tobacco use date assessed: 01/17/23 Fall risk assessment: No Falls in past year Last assessed Fall Risk: 05/30/23 Dental Screening Dental Screen Date: 05/30/23 Did you have a dental visit in the last 12 months?: No Did you have a dental problem in the last 6 months where you did not have access to dental care?: No Was dental information given to patient?: Patient has dentist HPI HPI Comments History of Present Illness Details This is a 73-year-old female with diabetes mellitus type 2, hypertension, pure hypercholesterolemia and mild recurrent major depression that comes today for follow-up on her conditions. A1c is still elevated in 7.3% and she admits that she cut metformin in half because she thinks that 850 mg is too high. I recommend to start taking the whole tablet twice a day. Blood pressure stable. LDL within goal. Depression stable with sertraline. Denies any chest pain or shortness of breath. [facility] Medical History Encounter for Medicare annual wellness exam Postmenopausal Chest pain Pure hypercholesterolemia Left knee pain GERD (gastroesophageal reflux disease) Memory loss Tinea pedis Transaminitis Vaginal prolapse Hypovitaminosis D Diabetes mellitus Essential hypertension Surgical History Hx of colonoscopy H/O: hysterectomy Family History Mother No problems noted. Father No problems noted. Social History Housing: Apartment Alcohol intake: never Patient Tobacco Use Status: Never used Tobacco e-Cigarette/Vaping Use: Never Used Second Hand Smoke Exposure: No service: No Current occupational status: retired Current occupation: rt hand Cognitive needs: No Hearing needs: No Vision needs: Yes (Glasses) Questionnaire Thrive Questionnaire Date Thrive assessed: 09/14/22 NORRIS-7 AMB Questionnaire NORRIS-7 Date NORRIS - 7 assessed: 09/14/22 Source: Developed by Drs. Steve Mead, Maria C Cope, Santos Villaseñor and colleagues, with an educational matti from [employer]. Review of Systems Const All systems reviewed & are unremarkable except as noted in HPI and below Eyes Reports no additional complaints, Denies change in vision and Denies other visual disturbances Card Denies chest pain at rest, Denies chest pain with activity, Denies edema, Denies irregular heart rhythm, Denies claudication, Denies dyspnea, Denies dyspnea on exertion, Denies orthopnea, Denies paroxysmal nocturnal dyspnea and Denies slow heart rate Resp Denies cough, Denies dyspnea and Denies dyspnea on exertion GI Denies abdominal pain, Denies change in bowel habits, Denies excessive flatus, Denies nausea and Denies vomiting Denies urinary incontinence, Denies urinary hesitancy and Denies urinary urgency Musc Denies abnormal gait, Denies atrophy, Denies deformity and Denies limited range of motion Skin/Breast Denies bleeding lesions, Denies changing lesions and Denies rash Neuro Denies abnormal gait, Denies behavioral changes and Denies lack of coordination Psych Denies behavioral changes Physical exam (Primary Care) Vital Signs: Last Vital Signs BP 130/82 05/30/23 14:46 BMI result Body Mass Index 26.5 Tobacco/Smoking Status: Tobacco use Status Tobacco use date assessed 01/17/23 05/30/23 14:41 Patient Tobacco Use Status Never used Tobacco 05/30/23 14:41 e-Cigarette/Vaping Use Never Used 05/30/23 14:41 Thrive Assessment: Date of Thrive Assessment Date Thrive assessed 09/14/22 05/30/23 14:41 Eyes General: appearance normal, both eyes and all related structures Eyelids: Yes eyelids normal Conjunctivae: conjunctivae normal Neck Neck: Yes normal visual inspection and Yes supple Resp Effort & Inspection: normal respiratory effort Auscultation: clear to auscultation bilaterally Cardio Jugular venous distension: no JVD Rate: regular rate Rhythm: regular rhythm Heart sounds: S1 normal heart sound present and S2 normal heart sound present Extrem General: Yes full ROM Results AMB Hemoglobin A1c AMB Hemoglobin A1c 7.3 % Last Edit by SONIA Pennington on 05/30/23 14:53 Results Reviewed Results Reviewed: Laboratory Last Values Hgb A1c (Clinic) 7.3 % (4.0-6.0) H 05/30/23 14:39 Assessment and Plan Assessment & Plan (1) Mild major depression: Code(s): F32.0 - Major depressive disorder, single episode, mild Plan: Continue sertraline. (2) Diabetes mellitus: Code(s): E11.9 - Type 2 diabetes mellitus without complications Qualifiers: Diabetes mellitus type: type 2 Diabetes mellitus fpc insulin use: without terminal operator use Diabetes mellitus complication status: without complication Qualified Code(s): E11.9 - Type 2 diabetes mellitus without complications Plan: Be compliant with metformin 850 mg twice a day. A1c goal is equal or less than 7%. (3) Essential hypertension: Code(s): I10 - Essential (primary) hypertension Plan: Continue amlodipine. Blood pressure goal is equal or less than 130/80. (4) Pure hypercholesterolemia: Code(s): E78.00 - Pure hypercholesterolemia, unspecified Plan: Continue statins. LDL goal is equal or less than 70. Orders: Orders AMB Hemoglobin A1c Today E11.9 - Type 2 diabetes mellitus without complications Comprehensive [place]. Panel Fast 4 Months E11.9 - Type 2 diabetes mellitus without complications Lipid Panel 4 Months E78.5 - Hyperlipidemia, unspecified Microalbumin, Random (w Creat) 4 Months E11.9 - Type 2 diabetes mellitus without complications Vitamin D 25-OH Total 4 Months E55.9 - Vitamin D deficiency, unspecified Medications: Refilled metformin 850 mg PO BID 180 tabs 3RF 90 days E11.9 - Type 2 diabetes mellitus without complications Coding Level of Care Code Est Pt Level 4 (77120) Diagnoses Mild major depression F32.0 Type 2 diabetes mellitus without complication, without long-term current use of insulin E11.9 Diabetes mellitus type: type 2 Diabetes mellitus terminal operator insulin use: without terminal operator use Diabetes mellitus complication status: without complication Essential hypertension I10 Pure hypercholesterolemia E78.00 Time Spent (min) 22
[2023-05-30 14:46] VITALS: BP 130/82; BMI 26.5
== END 2023-05-30 15:11 | disposition home or self-care (01) ==
PROVIDERS: PCP Internal Medicine; Visit Provider Internal Medicine
DX: F32.0 Major depressive disorder, single episode, mild (principal); E11.9 Type 2 diabetes mellitus without complications; I10 Essential (primary) hypertension; E78.00 Pure hypercholesterolemia, unspecified
CPT/HCPCS: 83036; 99214

== ENCOUNTER 2023-09-26 07:47 | Outpatient (REF) | payer OTHER, SELFPAY ==
[2023-09-26 09:35] LABS: Creatinine Urine 43.55 mg/dL; Microalbum/Creatinine Ratio Ur 13.7 ug/mg cr (<30)
[2023-09-26 09:47] LABS: Alanine Aminotransferase 22 U/L (0-31); Albumin Level 4.1 g/dL (3.5-5.0); Alkaline Phosphatase 88 U/L (39-117); Anion Gap 13 (12-20); Aspartate Amino Transferase 20 U/L (5-31); Bilirubin Total 0.4 mg/dL (0.0-1.0); Blood Urea Nitrogen 13 mg/dL (9-16); Calcium 9.4 mg/dL (8.4-10.2); Carbon Dioxide 26 mmol/L (22-29); Chloride 106 mmol/L (96-108); Cholesterol 101 mg/dL (<200); Estimated Glomerular Filt Rate > 60; Glucose Fasting 128 mg/dL (60-99); HDL Cholesterol 41 mg/dL (>40); LDL Cholesterol Calculated 40 mg/dL (<100); Potassium 3.8 mmol/L (3.3-5.1); Sodium 141 mmol/L (135-145); Total Protein 6.9 g/dL (6.5-8.0); Triglycerides 103 mg/dL (<150)
[2023-09-26 10:04] LABS: Vitamin D 25-OH Total 41.5 ng/mL (>30)
== END 2023-09-26 07:48 | disposition home or self-care (01) ==
LOC: HO.LAB 07:47
PROVIDERS: PCP Internal Medicine; Visit Provider Internal Medicine
DX: E11.9 Type 2 diabetes mellitus without complications (principal); E78.5 Hyperlipidemia, unspecified; E55.9 Vitamin D deficiency, unspecified
CPT/HCPCS: 36415; 80053; 80061; 82043; 82306; 82570

== ENCOUNTER 2023-09-28 13:17 | Outpatient (AMB) | payer OTHER, SELFPAY ==
[2023-09-28 13:22] VITALS: BP 130/72; BMI 26.5
--- NOTE | 2023-09-28 13:22 | MHC.PC.OV ---
Vital Signs 09/28/23 13:22 Height 5 ft 2 in Weight 145 lb BMI 26.5 BP 130/72 Blood Pressure Location Lt brachial Position Sitting Intake Visit Reasons: dm Intake Note: Patient here for a follow up DM Back Fe[employer] Layup Line Required: No Accompanied by: Self / Same As Patient Allergies No Known Allergies Allergy (Verified 09/28/23 13:42) Medication List - Last Reconciled 09/28/23 by Yvette Jackson MD amlodipine 5 mg PO DAILY 90 days aspirin 81 mg PO DAILY blood sugar diagnostic Use 1 freestyle test strip once a day calcium carbonate-vitamin D3 500 mg-5 mcg (200 unit) 2 tabs PO DAILY 90 days loratadine (Allergy Relief (loratadine)) 10 mg PO DAILY PRN 90 days meclizine 25 mg PO DAILY PRN 10 days metformin 850 mg PO BID 90 days nystatin 1 mL buccal DAILY 60 days omeprazole 20 mg PO DAILY 30 days oxybutynin chloride 10%(100mg/gram) (Gelnique) 1 packet topical DAILY rosuvastatin 10 mg PO DAILY 90 days sertraline 25 mg PO DAILY 90 days Tobacco use date assessed: 09/28/23 Fall risk assessment: No Falls in past year Last assessed Fall Risk: 09/28/23 Dental Screening Dental Screen Date: 09/28/23 Did you have a dental visit in the last 12 months?: No Did you have a dental problem in the last 6 months where you did not have access to dental care?: No Was dental information given to patient?: Patient has dentist HPI HPI Comments History of Present Illness Details This is a 73-year-old female with diabetes mellitus type 2, hypertension, pure hypercholesterolemia, GERD and mild major depression that comes today for follow-up on her conditions. A1c within goal. Blood pressure stable. LDL within goal. GERD stable with PPIs and she did make some dietary changes. Depression well controlled with SSRIs. Denies any chest pain or shortness of breath. Doing well. [facility] Medical History Encounter for Medicare annual wellness exam Postmenopausal Chest pain Pure hypercholesterolemia Left knee pain GERD (gastroesophageal reflux disease) Memory loss Tinea pedis Transaminitis Vaginal prolapse Hypovitaminosis D Diabetes mellitus Essential hypertension Surgical History Hx of colonoscopy H/O: hysterectomy Family History Mother No problems noted. Father No problems noted. Social History Housing: Apartment Alcohol intake: never Patient Tobacco Use Status: Never used Tobacco e-Cigarette/Vaping Use: Never Used Second Hand Smoke Exposure: No service: No Current occupational status: retired Current occupation: rt hand Cognitive needs: No Hearing needs: No Vision needs: Yes (Glasses) Questionnaire PHQ-9 Over the last 2 weeks, how often have you been bothered by any of the following problems? 1. Little interest or pleasure in doing things: not at all 2. Feeling down, depressed, or hopeless: not at all 3. Trouble falling or staying asleep, or sleeping too much: several days 4. Feeling tired or having little energy: not at all 5. Poor appetite or overeating: not at all 6. Feeling bad about yourself - or that you are a failure or have let yourself or your family down: not at all 7. Trouble concentrating on things, such as reading the newspaper or watching television: not at all 8. Moving or speaking so slowly that other people could have noticed. Or the opposite - being so fidgety or restless that you have been moving around a lot more than usual: not at all 9. Thoughts that you would be better off or of hurting yourself in some way: not at all Total score: 1 Depression Screening Interpretation: Negative Depression Screening Done: Yes 17430 - PHQ-9 Billing: Yes Source: Developed by Drs. Steve Mead, Maria C Cope, Santos Villaseñor and colleagues, with an educational matti from [employer]. Thrive Questionnaire Date Thrive assessed: 09/28/23 I am a: Patient What is your living situation today?: I have a steady place to live Within the past 12 months, did the food you bought not last and you didn't have the money to get more?: Never true Within the past 12 months, did you worry whether your food would run out before you got money to buy more?: Never true Do you have trouble paying for medicines?: No Do you have trouble getting transportation to medical appointments?: No Do you have trouble paying your heating and electricity bill?: No Do you have trouble taking care of your child, family member or friend?: No Do you have trouble with day-to-day activities such as bathing, preparing meals, shopping, managing finances, etc.?: No Are you currently unemployed and looking for a job?: No Are you interested in more education?: No Please select the resources that you would like help with: None Currently or been in a relationship where the following occur: no concerns reported THRIVE Score: 0 AUDIT C Alcohol Use Questionnaire (AUDIT-C) 1. How often do you have a drink containing alcohol?: Monthly or less 2. How many drinks containing alcohol do you have on a typical day when you are drinking?: 1 or 2 3. How often do you have six or more drinks on one occasion?: Never Total Score: 1 NORRIS-7 AMB Questionnaire NORRIS-7 Date NORRIS - 7 assessed: 09/28/23 Feeling nervous, anxious, or on edge: 0 = Not at all Not being able to stop or control worryin = Not at all Worrying too much about different things: 0 = Not at all Trouble relaxin = Not at all Being so restless that it is hard to sit still: 0 = Not at all Becoming easily annoyed or irritable: 0 = Not at all Feeling afraid as if something awful might happen: 0 = Not at all Total NORRIS-7 score (0-4 normal; 5-9 mild; 10-14 moderate; 15-21 severe): 0 Source: Developed by Drs. Steve Mead, Maria C Cope, Santos Villaseñor and colleagues, with an educational matti from [employer]. NORRIS-7 Assessment Billing NORRIS-7 Assessment Tool: NORRIS-7 Assessment 96043 Review of Systems Const All systems reviewed & are unremarkable except as noted in HPI and below Eyes Reports no additional complaints, Denies change in vision and Denies other visual disturbances Card Denies chest pain at rest, Denies chest pain with activity, Denies edema, Denies irregular heart rhythm, Denies claudication, Denies dyspnea, Denies dyspnea on exertion, Denies orthopnea, Denies paroxysmal nocturnal dyspnea and Denies slow heart rate Resp Denies cough, Denies dyspnea and Denies dyspnea on exertion Physical exam (Primary Care) Vital Signs: Last Vital Signs BP 130/72 09/28/23 13:22 BMI result Body Mass Index 26.5 Tobacco/Smoking Status: Tobacco use Status Tobacco use date assessed 09/28/23 09/28/23 13:32 Patient Tobacco Use Status Never used Tobacco 09/28/23 13:32 e-Cigarette/Vaping Use Never Used 09/28/23 13:32 PHQ-9: PHQ-9 Score PHQ-9: Total score 1 09/28/23 13:45 Depression Screening Interpretation: Negative Thrive Assessment: Date of Thrive Assessment Date Thrive assessed 09/28/23 09/28/23 13:32 Currently or been in a relationship where the following occur: no concerns reported Cardio Jugular venous distension: no JVD Rate: regular rate Rhythm: regular rhythm Heart sounds: S1 normal heart sound present and S2 normal heart sound present Extrem General: Yes full ROM Psych Appearance: grossly normal Results AMB Hemoglobin A1c AMB Hemoglobin A1c 6.9 % Last Edit by SONIA Pennington on 09/28/23 13:49 Results Reviewed Results Reviewed: Laboratory Last Values Hgb A1c (Clinic) 6.9 % (4.0-6.0) H 09/28/23 13:22 Assessment and Plan Assessment & Plan (1) Mild major depression: Code(s): F32.0 - Major depressive disorder, single episode, mild Plan: Continue SSRIs. (2) Diabetes mellitus: Code(s): E11.9 - Type 2 diabetes mellitus without complications Qualifiers: Diabetes mellitus type: type 2 Diabetes mellitus senior care insulin use: without senior care use Diabetes mellitus complication status: without complication Qualified Code(s): E11.9 - Type 2 diabetes mellitus without complications Plan: Continue metformin. A1c goal is equal or less than 7%. (3) Essential hypertension: Code(s): I10 - Essential (primary) hypertension Plan: Continue amlodipine. Blood pressure goal is equal or less than 130/80. (4) GERD (gastroesophageal reflux disease): Code(s): K21.9 - Gastro-esophageal reflux disease without esophagitis Qualifiers: Esophagitis presence: esophagitis presence not specified Qualified Code(s): K21.9 - Gastro-esophageal reflux disease without esophagitis Plan: Continue PPIs. (5) Pure hypercholesterolemia: Code(s): E78.00 - Pure hypercholesterolemia, unspecified Plan: Continue statins. LDL goal is less than 70. Orders: Orders Lipid Panel 4 Months E78.5 - Hyperlipidemia, unspecified Microalbumin, Random (w Creat) 4 Months E11.9 - Type 2 diabetes mellitus without complications Comprehensive [place]. Panel Fast 4 Months E11.9 - Type 2 diabetes mellitus without complications AMB Hemoglobin A1c 09/28/23 E11.9 - Type 2 diabetes mellitus without complications Coding Level of Care Code Est Pt Level 4 (17802) Diagnoses Mild major depression F32.0 Type 2 diabetes mellitus without complication, without long-term current use of insulin E11.9 Diabetes mellitus type: type 2 Diabetes mellitus intermediate manager insulin use: without senior care use Diabetes mellitus complication status: without complication Essential hypertension I10 Gastroesophageal reflux disease, unspecified whether esophagitis present K21.9 Esophagitis presence: esophagitis presence not specified Pure hypercholesterolemia E78.00 Additional Codes NORRIS-7 Assessment Billing - NORRIS-7 Assessment Tool: NORRIS-7 Assessment 73996 ([id number]) Time Spent (min) 23
== END 2023-09-28 13:59 | disposition home or self-care (01) ==
PROVIDERS: PCP Internal Medicine; Visit Provider Internal Medicine
DX: E11.9 Type 2 diabetes mellitus without complications (principal)
CPT/HCPCS: 83036; 99214

== ENCOUNTER 2023-12-05 15:35 | Outpatient (REF) | payer OTHER, SELFPAY | END 2023-12-05 15:36 | disposition home or self-care (01) | LOC: HO.MAMMO 15:35 | PROVIDERS: PCP Internal Medicine; Visit Provider Internal Medicine | DX: Z12.31 Encounter for screening mammogram for malignant neoplasm of breast (principal) | CPT/HCPCS: 77063; 77067 ==

== ENCOUNTER → 2023-12-05 15:45 | Outpatient (BNV) | payer OTHER, SELFPAY | PROVIDERS: PCP Internal Medicine; Visit Provider Radiology Diagnostic Radiology | DX: Z12.31 Encounter for screening mammogram for malignant neoplasm of breast (principal) | CPT/HCPCS: 77063; 77067 ==

== ENCOUNTER 2024-01-03 12:32 | Outpatient (AMB) | payer OTHER, SELFPAY ==
[2024-01-03 12:57] VITALS: BP 130/76; PULSE 67; O2SAT 98; BMI 27.2
--- NOTE | 2024-01-03 12:57 | MHC.OFFVIS ---
Vital Signs 01/03/24 12:57 Height 5 ft 2 in Weight 149 lb BMI 27.2 BP 130/76 Blood Pressure Location Rt brachial Position Sitting Pulse 67 Pulse Source Pulse Oximeter Pulse Oximetry (%) 98 Oxygen Delivery Method Room Air Intake Visit Reasons: INP-Dizziness/giddiness/ Neuropathy / ? dementia Intake Note: Patient presents for dizziness giddiness and neuropathy. patient here for evaluation. Weight Loss Centre Manager Required: Yes Weight Loss Centre Manager Services: Weight Loss Centre Manager Offered & Declined Weight Loss Centre Manager Name: Marta parry Allergies No Known Allergies Allergy (Verified 01/03/24 13:04) HPI Comments Details: 73-yr-old female presents for neurological evaluation of: dizziness, neuropathy, and cognitive concerns. Pt is accompanied by her granddtr who assists w/ Croatian interpretation per pt request. Pt reports she has had dizziness for years. States the dizziness is not right in space dizziness. She has has bouts of dizziness at times. The dizziness lasts about 20 minutes. She states it is triggered by the heat. She notices it most when she is in her apartment, which is on the 9th floor. She notes hse never has the dizziness when she is at her family's home, which has just 1 floor (but their house is colder). States the dizziness can occur in the shower- worse when standing, but typically sit during showers. She has tried meclizine but it can make her sleepy and dizzy. She drinks a lot of water- usually 8 8 ounce glasses plus coffee 3 cups a day (used to drink 5 cups a day). She has had bilateral numbness and pins/needles, creepy crawling sensation- in bilateral toes and sole of foot for many years- this is not worse. It is not painful. She does not feel the ground well while walking. She does have leg cramps at night- magnesium helps this. She has a podimetrics marylou at home to assess for s/s foot ulcers- also does daily foot checks. States hstr has had EMG in the past- showing neuropathy. Does endorse being told that she snores. Sleeps well w/ melatonin and Magnesium. Her granddtr is concerned about pt's STM- states pt may forget little things or leave the stove on. Once fell asleep while warming milk on the stove. Pt states her memeory is normal for her age. She does cook at home, but does not stay in the kitchen while cooking- so will set a timer to remind her to cook back to check on the food. Only forgets to check on the fod if she did not turn on a timer. She does not have a table or chair in her kitchen space. Many years ago- hit her forehead and had dizziness, saw stars, and had self-limited concussion s/s. Denies headaches, migraines, lightheadedness, syncope. 09/26/23 09/28/23 08:14 13:22 Hgb A1c (Clinic) 6.9 H 25-OH Vitamin D Total 41.5 PFSH Medical History Encounter for Medicare annual wellness exam Postmenopausal Chest pain Pure hypercholesterolemia Left knee pain GERD (gastroesophageal reflux disease) Memory loss Tinea pedis Transaminitis Vaginal prolapse Hypovitaminosis D Diabetes mellitus Essential hypertension Surgical History Hx of colonoscopy H/O: hysterectomy Family History Mother No problems noted. Father No problems noted. Social History Housing: Apartment Alcohol intake: never Patient Tobacco Use Status: Never used Tobacco e-Cigarette/Vaping Use: Never Used Second Hand Smoke Exposure: No service: No Current occupational status: retired Current occupation: rt hand Cognitive needs: No Hearing needs: No Vision needs: Yes (Glasses) Review of Systems Const All systems reviewed & are unremarkable except as noted in HPI and below Physical Exam Vital Signs: Last Vital Signs Pulse 67 01/03/24 12:57 BP 130/76 01/03/24 12:57 Pulse Ox 98 01/03/24 12:57 Oxygen Delivery Method Room Air 01/03/24 12:57 BMI result Body Mass Index 27.2 Const General: cooperative and no acute distress Orientation/consciousness: patient oriented x3 HEENT Head: Yes normocephalic Resp Effort & Inspection: normal respiratory effort and able to speak in complete sentences Neuro Other: BLE distal forefoot- plantar region through toes- hypersensitivity to sharp touch and vibration, decreased light touch, and intact position sensation. BLE- no edema, CMS +. General: patient oriented x3, CN's II-XI intact bilaterally and deep tendon reflexes 2+ bilaterally Gait exam (Neuro): Normal gait present Motor exam (neuro): 5/5 motor strength present throughout Coordination: [id number]-setw test normal and tandem gait normal Romberg Test: Negative Psych Appearance: grossly normal Mental Status: mental status grossly normal Speech and movement: Normal speech and movement present Affect: normal affect Attitude: cooperative Thought process: Normal thought process present Thought content: Normal thought content present Insight: Good insight present (Psych) Assessment & Plan Assessment & Plan (1) Dizziness: Code(s): R42 - Dizziness and giddiness Category: Medical (2) Neuropathy: Code(s): G62.9 - Polyneuropathy, unspecified Category: Medical (3) Memory loss: Code(s): R41.3 - Other amnesia Category: Medical Plan Pt advised to undergo: Labs Baseline brain MRI w/o Sleep study- however pt declines at this time. For dizziness: Add electrolyte replacement drink 12-20oz per day, and continue frequent water/fluid intake. If ineffective, consider trying PT for vestibular tx. For neuropathy: Pt denies any painful DN s/s- would not start analgesic medications at this time. Check labs as above. Continue routine diabtic foot checks. For STM difficulties: Pt advsied to NOT leave her kitchen while cooking- granddtr sttaes they can place a chair in her kitchen. Labs and Brain MRI as above. Patient seen in collaboration with Dr. Patterson. Orders: Orders Complete Blood Count Auto Diff Today E11.9 - Type 2 diabetes mellitus without complications, G62.9 - Polyneuropathy, unspecified, I10 - Essential (primary) hypertension, R41.3 - Other amnesia, R42 - Dizziness and giddiness TSH reflex Free T4 Today E11.9 - Type 2 diabetes mellitus without complications, G62.9 - Polyneuropathy, unspecified, I10 - Essential (primary) hypertension, R41.3 - Other amnesia, R42 - Dizziness and giddiness Vitamin B12 and Folate Today E11.9 - Type 2 diabetes mellitus without complications, G62.9 - Polyneuropathy, unspecified, I10 - Essential (primary) hypertension, R41.3 - Other amnesia, R42 - Dizziness and giddiness Erythrocyte Sedimentation Rate Today E11.9 - Type 2 diabetes mellitus without complications, G62.9 - Polyneuropathy, unspecified, I10 - Essential (primary) hypertension, R41.3 - Other amnesia, R42 - Dizziness and giddiness CRP High Sensitivity Today E11.9 - Type 2 diabetes mellitus without complications, G62.9 - Polyneuropathy, unspecified, I10 - Essential (primary) hypertension, R41.3 - Other amnesia, R42 - Dizziness and giddiness MR head/brain wo con Today R41.3 - Other amnesia, R42 - Dizziness and giddiness Coding Level of Care Code New Pt Level 4 (05585) Diagnoses Dizziness R42 Neuropathy G62.9 Memory loss R41.3
== END 2024-01-03 14:21 | disposition home or self-care (01) ==
PROVIDERS: PCP Internal Medicine; Visit Provider Nurse Practitioner Family
DX: R42 Dizziness and giddiness (principal); G62.9 Polyneuropathy, unspecified; R41.3 Other amnesia
CPT/HCPCS: 99204

== ENCOUNTER → 2024-01-03 12:32 | Outpatient (BNVA) | payer OTHER, SELFPAY | PROVIDERS: PCP Internal Medicine; Visit Provider Nurse Practitioner Family | DX: R42 Dizziness and giddiness (principal); I10 Essential (primary) hypertension; G62.9 Polyneuropathy, unspecified; R41.3 Other amnesia | CPT/HCPCS: 99202 ==

== ENCOUNTER 2024-01-04 11:31 | Outpatient (REF) | payer OTHER, SELFPAY ==
[2024-01-04 11:53] LABS: MANUAL DIFF FLAG NO
[2024-01-04 11:55] LABS: Basophils Percent Auto 0.3 % (0-2); Eosinophils Absolute Auto 0.1 X10*3/uL (0.0-0.4); Eosinophils Percent Auto 1.3 % (0-4); Hematocrit 38.4 % (37.0-47.0); Hemoglobin 12.9 g/dl (12.0-16.0); Imm Gran Abs Auto 0.02 X10*3/uL (0.00-0.03); Imm Gran Pct Auto 0.3 % (0.0-0.4); Lymphocytes Absolute Auto 2.5 X10*3/uL (1.2-4.9); Lymphocytes Percent Auto 36.8 % (20-40); Mean Corpuscular HGB Conc 33.6 g/dl (31.0-35.0); Mean Corpuscular Hemoglobin 30.2 pg (27.0-33.0); Mean Corpuscular Volume 89.9 fL (80.0-98.0); Mean Platelet Volume 11.6 fL (9.4-12.3); Monocytes Absolute Auto 0.5 X10*3/uL (0.1-1.2); Monocytes Percent Auto 6.9 % (2-11); Neutrophils Absolute Auto 3.7 x10*3/uL (2.0-8.3); Neutrophils Percent Auto 54.4 % (45-73); Platelet Count 217 X10*3/uL (160-400); Red Blood Count 4.27 X10*6/uL (4.20-5.50); Red Cell Distribution Width 12.8 % (11.0-16.0); White Blood Count 6.9 X10*3/uL (4.8-10.8)
[2024-01-04 12:29] LABS: TSH reflex Free T4 1.26 uIU/mL (0.32-4.0)
[2024-01-04 12:35] LABS: Erythrocyte Sedimentation Rate 13 MM/HR (0-20)
[2024-01-04 12:46] LABS: Folate 12.2 ng/mL (> or = 4.0); Vitamin B12 579 pg/mL (200-900)
[2024-01-05 23:02] LABS: CRP High Sensitivity 0.7 mg/L
== END 2024-01-04 11:32 | disposition home or self-care (01) ==
LOC: HO.LAB 11:31
PROVIDERS: PCP Internal Medicine; Visit Provider Nurse Practitioner Family
DX: G62.9 Polyneuropathy, unspecified (principal); R42 Dizziness and giddiness; R41.3 Other amnesia; E11.9 Type 2 diabetes mellitus without complications; I10 Essential (primary) hypertension
CPT/HCPCS: 36415; 82607; 82746; 84443; 85025; 85652; 86141

== ENCOUNTER 2024-01-29 09:36 | Outpatient (REF) | payer OTHER, SELFPAY ==
--- NOTE | ~2024-01-29 | MR_ITS ---
EXAMINATION: MR BRAIN WITHOUT CONTRAST CLINICAL INFORMATION: Dizziness COMPARISON: MRI of the brain without contrast 04/07/2010, CT head without contrast 04/07/2019 TECHNIQUE: Multiplanar multisequence MR imaging of the brain was obtained without intravenous contrast. FINDINGS: There is no acute infarct on diffusion-weighted imaging. There is no intracranial hemorrhage on iron-sensitive imaging. No extra-axial collection or mass effect/herniation. There are several scattered foci of nonspecific supratentorial white matter T2/FLAIR signal abnormality, within normal limits for age and likely reflecting sequela of chronic microvascular ischemia. No hydrocephalus. Mild age-appropriate generalized cerebral volume loss with commensurate sulcal and ventricular prominence. Jone cisterna magna. The major flow voids at the skull base are preserved. Partially empty sella. The cerebellar tonsils are normally positioned. The craniocervical junction is normal. Marrow signal is within normal limits. Degenerative changes of the temporomandibular joints. The visualized soft tissues are without significant abnormality. Trace ethmoid and maxillary sinus mucosal thickening. Small left mastoid fluid. MR/MR head/brain wo con IMPRESSION: Unremarkable noncontrast MRI of the brain for age with mild generalized volume loss and minimal microangiopathic white matter signal changes. Electronically signed by: Mati Parks MD 02/21/2024 12:17 PM EDT
== END 2024-01-29 09:37 | disposition home or self-care (01) ==
LOC: HO.MRI 09:36
PROVIDERS: PCP Internal Medicine; Visit Provider Nurse Practitioner Family
DX: R42 Dizziness and giddiness (principal); R41.3 Other amnesia
CPT/HCPCS: 70551

== ENCOUNTER 2024-03-18 10:39 | Outpatient (REF) | payer OTHER, SELFPAY ==
--- NOTE | ~2024-03-18 | XR_ITS ---
EXAMINATION: The atelectatic changes XR HIP, LEFT CLINICAL INFORMATION: Pain for a couple of weeks after the for a period of time. COMPARISON: None available. TECHNIQUE: 2 views of the left hip. FINDINGS: Degenerative changes in the left sacroiliac joint joint space narrowing and hypertrophic change. Diffuse demineralization. Moderate degenerative changes in the left hip joint space narrowing and hypertrophic change. XR/XR hip LT min 2V IMPRESSION: 1. Moderate degenerative changes in the left hip. 2. Moderate degenerative changes in the lumbosacral joint. 3. Diffuse demineralization 4. Additional imaging with CT scan or MRI should be considered for better visualization as these modalities are much more sensitive for detection of fracture or other underlying pathology. Electronically signed by: Sandra Ivey MD 03/25/2024 02:11 PM EDT RP
== END 2024-03-18 10:40 | disposition home or self-care (01) ==
LOC: HO.XRAY 10:39
PROVIDERS: PCP Internal Medicine; Visit Provider Physician Assistant
DX: M25.552 Pain in left hip (principal)
CPT/HCPCS: 73502

== ENCOUNTER 2024-05-17 13:40 | Outpatient (REF) | payer OTHER, SELFPAY ==
--- NOTE | ~2024-05-17 | CT_ITS ---
EXAMINATION: CT HIP WITHOUT CONTRAST, LEFT CLINICAL INFORMATION: Left hip pain. Osteoarthritis. COMPARISON: Most recent left hip radiographs dated 03/18/2024. TECHNIQUE: Multidetector volumetric imaging was obtained through the left hip without contrast material. Multiplanar reformatted images were submitted in coronal and sagittal planes. This CT examination was performed using dose optimization techniques as appropriate, variously including the following: *Automated exposure control *Adjustment of mA and/or kV according to patient size (this includes techniques or standardized protocols for targeted exams where dose is matched to indication/reason for exam; i.e. extremities or head) *Use of iterative reconstruction technique DLP: 173 mGy-cm FINDINGS: No acute fracture or dislocation. The femoral head is well-seated within the acetabulum. Mild left hip joint space narrowing with acetabular marginal osteophytes, similar when compared to the prior radiographs. No concerning lytic or blastic osseous lesion. No evidence of femoral head avascular necrosis. Partially visualized mild osteoarthritis at the symphysis pubis. No significant left hip joint effusion. No soft tissue mass or fluid collection. The visualized intrapelvic structures are grossly unremarkable. Visualized muscles and tendons are intact; however, evaluation is limited on CT examination. CT/CT hip LT wo IV con IMPRESSION: 1. Mild left hip osteoarthritis, similar when compared to the prior radiographs. 2. No acute fracture or dislocation. Electronically signed by: Reza Vaughn MD 05/21/2024 12:55 PM [facility]
== END 2024-05-17 13:41 | disposition home or self-care (01) ==
LOC: HO.CT 13:40
PROVIDERS: PCP Internal Medicine; Visit Provider Internal Medicine
DX: M16.12 Unilateral primary osteoarthritis, left hip (principal)
CPT/HCPCS: 73700

== ENCOUNTER 2024-07-02 08:33 | Outpatient (REF) | payer OTHER, SELFPAY ==
[2024-07-02 09:32] LABS: Alanine Aminotransferase 42 U/L (0-31); Albumin Level 4.2 g/dL (3.5-5.0); Alkaline Phosphatase 125 U/L (39-117); Anion Gap 10 (12-20); Aspartate Amino Transferase 35 U/L (5-31); Bilirubin Total 0.3 mg/dL (0.0-1.0); Blood Urea Nitrogen 17 mg/dL (9-16); Calcium 9.9 mg/dL (8.4-10.2); Carbon Dioxide 26 mmol/L (22-29); Chloride 109 mmol/L (96-108); Cholesterol 112 mg/dL (<200); Estimated Glomerular Filt Rate > 60; Glucose Fasting 169 mg/dL (60-99); HDL Cholesterol 46 mg/dL (>40); Potassium 4.1 mmol/L (3.3-5.1); Sodium 141 mmol/L (135-145); Total Protein 7.3 g/dL (6.5-8.0)
[2024-07-02 10:50] LABS: Creatinine Urine 59.46 mg/dL; Microalbum/Creatinine Ratio Ur 11.7 ug/mg cr (<30)
[2024-07-02 14:29] LABS: LDL Cholesterol Calculated 43 mg/dL (<100)
[2024-07-02 14:32] LABS: Triglycerides 115 mg/dL (<150)
[2024-07-02 15:34] LABS: Appearance Urine Hazy; Color Urine Yellow; Glucose Urine UA Negative (Negative); Leukocyte Esterase Urine Small (1+) (Negative); Nitrite Urine Negative (Negative); PH 6.5 (5.0-9.0); UMIC TRIGGER UACC YES; Urine Blood Negative (Negative); Urine Ketones Negative (Negative); Urine Protein Negative (Neg-Trace)
[2024-07-02 16:24] LABS: Bacteria Urine 4+ (None Seen); Hyaline Casts Urine 0-2 /LPF (0-2); RBC Urine 0-2 /HPF (0-2); Squamous Epithelial Cell Urine 0-2 /HPF (0-2); UACC Culture Trigger YES
== END 2024-07-02 08:34 | disposition home or self-care (01) ==
LOC: HO.LAB 08:33
PROVIDERS: PCP Internal Medicine; Visit Provider Internal Medicine
DX: E78.5 Hyperlipidemia, unspecified (principal); E11.9 Type 2 diabetes mellitus without complications; R30.0 Dysuria
CPT/HCPCS: 36415; 80053; 80061; 81001; 82043; 82570; 87086; 87088; 87186

== ENCOUNTER 2024-07-04 17:03 | Outpatient (AMB) | payer OTHER, SELFPAY ==
--- NOTE | 2024-07-04 17:11 | MHC.PC.OV ---
Vital Signs 07/04/24 17:15 Height 5 ft 2 in Weight 145 lb BMI 26.5 BP 122/80 Blood Pressure Location Lt brachial Position Sitting Intake Visit Reasons: Follow Up Intake Note: Patient here for a follow up, c/o hair loss, trouble sleeping, ? UTI, food don't taste right, loss of memory Fish Cutter Required: Yes Fish Cutter Language: Electrical Equipment Assembler Name: Yvette Jackson MD Information Interpreted: non-clinical & clinical Accompanied by: Grand Child Allergies No Known Allergies Allergy (Verified 07/04/24 17:36) Medication List - Last Reconciled 07/04/24 by Yvette Jackson MD amlodipine 10 mg PO DAILY 90 days aspirin 81 mg PO DAILY blood sugar diagnostic Use 1 freestyle test strip once a day calcium carbonate-vitamin D3 500 mg-5 mcg (200 unit) 2 tabs PO DAILY 90 days [diabetic socks As directed] lancets (OneTouch Delica Plus Lancet) As directed once per day loratadine (Allergy Relief (loratadine)) 10 mg PO DAILY PRN 90 days meclizine 25 mg PO DAILY PRN 10 days metformin 850 mg PO BID 90 days nystatin 1 mL buccal DAILY 60 days omeprazole 20 mg PO DAILY 30 days oxybutynin chloride 10%(100mg/gram) (Gelnique) 1 packet topical DAILY rosuvastatin 10 mg PO DAILY 90 days sertraline 25 mg PO DAILY 90 days Shower Chair As directed sulfamethoxazole-trimethoprim 800-160 mg 1 tab PO BID 5 days Tobacco use date assessed: 07/04/24 Fall risk assessment: No Falls in past year Last assessed Fall Risk: 07/04/24 Dental Screening Dental Screen Date: 07/04/24 Did you have a dental visit in the last 12 months?: No Did you have a dental problem in the last 6 months where you did not have access to dental care?: No Was dental information given to patient?: Patient has dentist HPI HPI Comments History of Present Illness Details The patient is a 74-year-old female presenting with concerns related to diabetes management and a urinary tract infection diagnosis. She reports receiving a diagnosis of a urinary tract infection recently, caused by E. coli, which was confirmed by a culture. An antibiotic was prescribed, but there was some confusion about when it was received and picked up from the pharmacy. The patient also presents for diabetes management with a recent HbA1c level noted at 7.9%, which has increased from prior levels of 7.6% and 6.9%. Her current medication regimen for diabetes includes metformin, which she has expressed reluctance to take due to concerns related to side effects and personal anecdotes. She has not been adherent to her prescribed metformin dosage. Mildly elevated liver enzymes were noted, possibly due to hepatic steatosis. She has reported issues with remembering things in the past but found that a particular anxiety medication made her overly sleepy, which impacted her ability to function daily. Additionally, the patient struggles with anxiety, particularly since certain medications cause drowsiness, leading to non-compliance. [facility] Medical History Encounter for Medicare annual wellness exam Postmenopausal Chest pain Pure hypercholesterolemia Left knee pain GERD (gastroesophageal reflux disease) Memory loss Tinea pedis Transaminitis Vaginal prolapse Hypovitaminosis D Diabetes mellitus Essential hypertension Surgical History Hx of colonoscopy H/O: hysterectomy Family History Mother No problems noted. Father No problems noted. Social History Housing: Apartment Alcohol intake: never Patient Tobacco Use Status: Never used Tobacco e-Cigarette/Vaping Use: Never Used Second Hand Smoke Exposure: No service: No Current occupational status: retired Current occupation: rt hand Cognitive needs: No Hearing needs: No Vision needs: Yes (Glasses) Questionnaire PHQ-9 Over the last 2 weeks, how often have you been bothered by any of the following problems? 1. Little interest or pleasure in doing things: not at all 2. Feeling down, depressed, or hopeless: not at all 3. Trouble falling or staying asleep, or sleeping too much: several days 4. Feeling tired or having little energy: not at all 5. Poor appetite or overeating: not at all 6. Feeling bad about yourself - or that you are a failure or have let yourself or your family down: not at all 7. Trouble concentrating on things, such as reading the newspaper or watching television: not at all 8. Moving or speaking so slowly that other people could have noticed. Or the opposite - being so fidgety or restless that you have been moving around a lot more than usual: not at all 9. Thoughts that you would be better off or of hurting yourself in some way: not at all Total score: 1 Depression Screening Interpretation: Negative Depression Screening Done: Yes 51881 - PHQ-9 Billing: Yes Source: Developed by Drs. Steve Mead, Maria C Cope, Santos Villaseñor and colleagues, with an educational matti from [employer]. Thrive Questionnaire Date Thrive assessed: 07/04/24 I am a: Patient What is your living situation today?: I have a steady place to live Within the past 12 months, did the food you bought not last and you didn't have the money to get more?: Never true Within the past 12 months, did you worry whether your food would run out before you got money to buy more?: Never true Do you have trouble paying for medicines?: No Do you have trouble getting transportation to medical appointments?: No Do you have trouble paying your heating and electricity bill?: No Do you have trouble taking care of your child, family member or friend?: No Do you have trouble with day-to-day activities such as bathing, preparing meals, shopping, managing finances, etc.?: No Are you currently unemployed and looking for a job?: No Are you interested in more education?: No Please select the resources that you would like help with: None Currently or been in a relationship where the following occur: No concerns reported THRIVE Score: 0 AUDIT C Alcohol Use Questionnaire (AUDIT-C) 1. How often do you have a drink containing alcohol?: Monthly or less 2. How many drinks containing alcohol do you have on a typical day when you are drinking?: 1 or 2 3. How often do you have six or more drinks on one occasion?: Never Total Score: 1 Score Reviewed/Action Taken: No NORRIS-7 AMB Questionnaire NORRIS-7 Date NORRIS - 7 assessed: 07/04/24 Feeling nervous, anxious, or on edge: 0 = Not at all Not being able to stop or control worryin = Not at all Worrying too much about different things: 0 = Not at all Trouble relaxin = Not at all Being so restless that it is hard to sit still: 0 = Not at all Becoming easily annoyed or irritable: 0 = Not at all Feeling afraid as if something awful might happen: 0 = Not at all Total NORRIS-7 score (0-4 normal; 5-9 mild; 10-14 moderate; 15-21 severe): 0 Source: Developed by Drs. Steve Mead, Maria C Cope, Santos Villaseñor and colleagues, with an educational matti from [employer]. NORRIS-7 Assessment Billing NORRIS-7 Assessment Tool: NORRIS-7 Assessment 21443 Review of Systems Const All systems reviewed & are unremarkable except as noted in HPI and below Card Denies chest pain at rest, Denies chest pain with activity, Denies edema, Denies irregular heart rhythm, Denies claudication, Denies dyspnea, Denies dyspnea on exertion, Denies orthopnea, Denies paroxysmal nocturnal dyspnea and Denies slow heart rate Resp Denies cough, Denies dyspnea and Denies dyspnea on exertion GI Denies abdominal pain, Denies change in bowel habits, Denies excessive flatus, Denies nausea and Denies vomiting Denies urinary incontinence, Denies urinary hesitancy and Denies urinary urgency Physical exam (Primary Care) Vital Signs: Last Vital Signs BP 122/80 07/04/24 17:15 BMI result Body Mass Index 26.5 Tobacco/Smoking Status: Tobacco use Status Tobacco use date assessed 07/04/24 07/04/24 17:21 Patient Tobacco Use Status Never used Tobacco 07/04/24 17:21 e-Cigarette/Vaping Use Never Used 07/04/24 17:21 PHQ-9: PHQ-9 Score PHQ-9: Total score 1 07/04/24 17:41 Depression Screening Interpretation: Negative Thrive Assessment: Date of Thrive Assessment Date Thrive assessed 07/04/24 07/04/24 17:21 Currently or been in a relationship where the following occur: No concerns reported Resp Effort & Inspection: normal respiratory effort Auscultation: clear to auscultation bilaterally Cardio Jugular venous distension: no JVD Rate: regular rate Rhythm: regular rhythm Heart sounds: S1 normal heart sound present and S2 normal heart sound present Extrem General: Yes full ROM Results AMB Hemoglobin A1c AMB Hemoglobin A1c 7.9 % Last Edit by SONIA Pennington on 07/04/24 17:34 AMB Urinalysis, Automated UA Leukoctes 1 Norris/uL Last Edit by Elie Barrios, RMA on 07/04/24 17:34 UA Nitrite Negative Last Edit by Quynhcarissa Barrios, RMA on 07/04/24 17:34 UA Urobilinogen 0.2 mg/dL Last Edit by Quynhcarissa Barrios, RMA on 07/04/24 17:34 UA Protein 0 mg/dL Last Edit by Elie Barrios, RMA on 07/04/24 17:34 UA pH 6.0 Last Edit by Elie Barrios, RMA on 07/04/24 17:34 UA Blood 0 Arpit/uL Last Edit by Yvettewandacarissa Barrios, RMA on 07/04/24 17:34 UA Specific Peculiar 1.015 Last Edit by Elie Barrios, RMA on 07/04/24 17:34 UA Ketone Negative Last Edit by Elie Barrios, RMA on 07/04/24 17:34 UA Bilirubin 0 mg/dL Last Edit by Elie Barrios, RMA on 07/04/24 17:34 UA Glucose 0 mg/dL Last Edit by Yvettewandacarissa Barrios, A on 07/04/24 17:34 Results Reviewed Results Reviewed: Laboratory Last Values Hgb A1c (Clinic) 7.9 % (4.0-6.0) H 07/04/24 17:24 Urine pH (Auto) 6.0 07/04/24 17:24 Specific Peculiar (Auto) 1.015 07/04/24 17:24 Urine Protein (Auto) 0 mg/dL 07/04/24 17:24 Glucose (UA)(Auto) 0 mg/dL 07/04/24 17:24 Urine Ketones (Auto) Negative 07/04/24 17:24 Urine Blood (Auto) 0 Arpit/uL 07/04/24 17:24 Urine Nitrite (Auto) Negative 07/04/24 17:24 Urine Bilirubin (Auto) 0 mg/dL 07/04/24 17:24 Urine Urobilinogen (Auto) 0.2 mg/dL 07/04/24 17:24 Leukocyte Esterase (Auto) 1 Norris/uL 07/04/24 17:24 Coding Level of Care Code Est Pt Level 4 (84155) Complex EM visit Add On G2211 Diagnoses NORRIS (generalized anxiety disorder) F41.1 Mild major depression F32.0 Pure hypercholesterolemia E78.00 Type 2 diabetes mellitus without complication, without long-term current use of insulin E11.9 Diabetes mellitus type: type 2 Diabetes mellitus skilled nursing insulin use: without technician terminal and repeater use Diabetes mellitus complication status: without complication Essential hypertension I10 Additional Codes NORRIS-7 Assessment Billing - NORRIS-7 Assessment Tool: NORRIS-7 Assessment 96006 ([id number]) PHQ-9 - 49647 - PHQ-9 Billing: Yes ([id number]) Time Spent (min) 24 Assessment & Plan Assessment & Plan (1) NORRIS (generalized anxiety disorder): Code(s): F41.1 - Generalized anxiety disorder Category: Medical (2) Mild major depression: Code(s): F32.0 - Major depressive disorder, single episode, mild Category: Medical (3) Pure hypercholesterolemia: Code(s): E78.00 - Pure hypercholesterolemia, unspecified Category: Medical (4) Diabetes mellitus: Code(s): E11.9 - Type 2 diabetes mellitus without complications Category: Medical Qualifiers: Diabetes mellitus type: type 2 Diabetes mellitus technician terminal and repeater insulin use: without technician terminal and repeater use Diabetes mellitus complication status: without complication Qualified Code(s): E11.9 - Type 2 diabetes mellitus without complications (5) Essential hypertension: Code(s): I10 - Essential (primary) hypertension Category: Medical Plan - Adjust metformin dosage for diabetes management and consider additional or alternative medication as needed, starting with a reduction to 500 mg twice daily. - Encourage patient to take the prescribed antibiotic for the urinary tract infection and monitor for resolution of symptoms. - Consider reducing rosuvastatin dose due to good control of cholesterol levels. - Explore alternative anxiety medications due to current side effects and discuss starting floxetine at 10 mg. - Monitor liver enzyme levels and consider lifestyle modifications for potential hepatic steatosis. Patient was informed and verbally consented to the use of an ambient scribe for clinic note documentation during this visit. I discussed with the patient the need for adhering to diabetes management, emphasizing the importance of metformin and monitoring HbA1c levels. We reviewed the possible reduction in rosuvastatin dose due to favorable lipid panel results. I explained the importance of completing the antibiotic course for the urinary tract infection to ensure full resolution. The patient was informed about potential alternative options for managing anxiety, specifically the option of using fluoxetine due to intolerable side effects from current treatment. I addressed the patient?s concerns regarding elevated liver enzymes, suggesting lifestyle modifications that may help mitigate this issue. Orders: Orders Lipid Panel 4 Months E78.5 - Hyperlipidemia, unspecified Vitamin B12 and Folate 4 Months E53.8 - Deficiency of other specified B group vitamins Comprehensive Perry. Panel Fast 4 Months E11.9 - Type 2 diabetes mellitus without complications AMB Hemoglobin A1c 07/04/24 E11.9 - Type 2 diabetes mellitus without complications AMB Urinalysis Automated 07/04/24 R82.90 - Unspecified abnormal findings in urine Microalbumin, Random (w Creat) 4 Months R80.9 - Proteinuria, unspecified Vitamin D 25-OH Total 4 Months E55.9 - Vitamin D deficiency, unspecified Medications: New rosuvastatin 5 mg PO DAILY 90 tabs 1RF 90 days fluoxetine 10 mg PO DAILY 90 tabs 1RF 90 days F41.1 - Generalized anxiety disorder metformin 500 mg PO BID 180 tabs 1RF 90 days empagliflozin (Jardiance) 10 mg PO DAILY 90 tabs 1RF 90 days E11.9 - Type 2 diabetes mellitus without complications Discontinued sertraline Discontinued Reason: Patient Completed Course 25 mg PO DAILY 90 days 90 tabs 0RF F32.0 - Major depressive disorder, single episode, mild metformin Discontinued Reason: Patient Completed Course 850 mg PO BID 90 days 180 tabs 3RF E11.9 - Type 2 diabetes mellitus without complications rosuvastatin Discontinued Reason: Patient Completed Course 10 mg PO DAILY 90 days 90 tabs 1RF E78.00 - Pure hypercholesterolemia, unspecified Patient Instructions: - Take metformin 500 mg twice daily as prescribed. - Start antibiotic treatment immediately for the urinary tract infection and complete the entire course. - Monitor blood glucose levels and blood pressure regularly. - Follow up with lifestyle adjustments to support liver health. - Take fluoxetine 10 mg for anxiety management, noting any side effects. - Schedule a follow-up appointment to reassess diabetes management, liver enzyme levels, and anxiety treatment in four months. - Notify the clinic if symptoms worsen or new symptoms arise.
[2024-07-04 17:15] VITALS: BP 122/80; BMI 26.5
== END 2024-07-04 17:50 | disposition home or self-care (01) ==
PROVIDERS: PCP Internal Medicine; Visit Provider Internal Medicine
DX: E11.9 Type 2 diabetes mellitus without complications (principal); R82.90 Unspecified abnormal findings in urine

== ENCOUNTER → 2024-07-04 17:03 | Outpatient (BNVA) | payer OTHER, SELFPAY | PROVIDERS: PCP Internal Medicine; Visit Provider Internal Medicine | DX: F41.1 Generalized anxiety disorder (principal); F32.0 Major depressive disorder, single episode, mild; E78.00 Pure hypercholesterolemia, unspecified; E11.9 Type 2 diabetes mellitus without complications; I10 Essential (primary) hypertension | CPT/HCPCS: 81003; 83036; 96127; 99212 ==

== ENCOUNTER 2024-09-30 13:58 | Outpatient (AMB) | payer OTHER, SELFPAY ==
[2024-09-30 14:03] VITALS: BP 118/82; BMI 27.1
--- NOTE | 2024-09-30 14:03 | MHC.PC.OV ---
Vital Signs 09/30/24 14:03 Height 5 ft 2 in Weight 148 lb BMI 27.1 BP 118/82 Blood Pressure Location Lt brachial Position Sitting Intake Visit Reasons: swollen legs Staff Nurse Anesthetist Required: No Accompanied by: Grand Child Allergies No Known Allergies Allergy (Verified 09/30/24 14:14) Medication List - Last Reconciled 09/30/24 by Yvette Jackson MD amlodipine 10 mg PO DAILY 90 days aspirin 81 mg PO DAILY blood sugar diagnostic Use 1 freestyle test strip once a day blood sugar diagnostic (OneTouch Ultra Test strips) As directed once daily blood-glucose meter ([employer]Touch Ultra2 Meter) As directed calcium carbonate-vitamin D3 500 mg-5 mcg (200 unit) 2 tabs PO DAILY 90 days [diabetic socks As directed] empagliflozin (Jardiance) 10 mg PO DAILY 90 days fluoxetine 10 mg PO DAILY 90 days lancets ([employer]Touch Delica Plus Lancet) As directed once per day loratadine (Allergy Relief (loratadine)) 10 mg PO DAILY PRN 90 days meclizine 25 mg PO DAILY PRN 10 days metformin 500 mg PO BID 90 days nystatin 1 mL buccal DAILY 60 days omeprazole 20 mg PO DAILY 30 days oxybutynin chloride 10%(100mg/gram) (Gelnique) 1 packet topical DAILY rosuvastatin 5 mg PO DAILY 90 days Shower Chair As directed sulfamethoxazole-trimethoprim 800-160 mg 1 tab PO BID 5 days Tobacco use date assessed: 07/04/24 Fall risk assessment: No Falls in past year Last assessed Fall Risk: 09/30/24 Dental Screening Dental Screen Date: 07/04/24 HPI HPI Comments History of Present Illness Details The patient is a 74-year-old female presenting with leg swelling. She reports the swelling to have started about two weeks ago, coinciding with her use of amlodipine for hypertension at the highest prescribed dose of 10 mg. The edema has been present particularly in the legs and has been a point of concern as it was evident this morning. The patient's medical regimen includes treatment for Type 2 Diabetes Mellitus with metformin, and a notable regimen of supplements that include chromium and vitamin B12, noted at a high intake level. Her depression with anxiety is treated with fluoxetine, and she manages symptoms of allergic rhinitis and gastroesophageal reflux disease with loratadine and omeprazole, respectively. Hyperlipidemia is managed on 5 mg of rosuvastatin. The patient does not smoke or consume alcohol. She has expressed concerns over the efficacy of her blood pressure monitoring equipment, which is noted to be quite old. Mild major depression with anxiety stable with medications. [facility] Medical History (Updated 09/30/24 @ 14:31 by Yvette Jackson MD) Encounter for Medicare annual wellness exam Postmenopausal Chest pain Pure hypercholesterolemia Left knee pain GERD (gastroesophageal reflux disease) Memory loss Tinea pedis Transaminitis Vaginal prolapse Hypovitaminosis D Diabetes mellitus Essential hypertension Surgical History Hx of colonoscopy H/O: hysterectomy Family History Mother No problems noted. Father No problems noted. Social History Housing: Apartment Alcohol intake: never Patient Tobacco Use Status: Never used Tobacco e-Cigarette/Vaping Use: Never Used Second Hand Smoke Exposure: No service: No Current occupational status: retired Current occupation: rt hand Cognitive needs: No Hearing needs: No Vision needs: Yes (Glasses) Questionnaire Thrive Questionnaire Date Thrive assessed: 07/04/24 NORRIS-7 AMB Questionnaire NORRIS-7 Date NORRIS - 7 assessed: 07/04/24 Source: Developed by Drs. Steve Mead, Maria C Cope, Santos Villaseñor and colleagues, with an educational matti from [employer]. Review of Systems Const All systems reviewed & are unremarkable except as noted in HPI and below Card Denies chest pain at rest, Denies chest pain with activity, Denies edema, Denies irregular heart rhythm, Denies claudication, Denies dyspnea, Denies dyspnea on exertion, Denies orthopnea, Denies paroxysmal nocturnal dyspnea and Denies slow heart rate Resp Denies cough, Denies dyspnea and Denies dyspnea on exertion GI Denies abdominal pain, Denies change in bowel habits, Denies excessive flatus, Denies nausea and Denies vomiting Denies urinary incontinence, Denies urinary hesitancy and Denies urinary urgency Musc Denies atrophy, Denies deformity and Denies limited range of motion Skin/Breast Denies bleeding lesions, Denies changing lesions and Denies rash Aller/Immun Denies urticaria Physical exam (Primary Care) Vital Signs: Last Vital Signs BP 118/82 09/30/24 14:03 BMI result Body Mass Index 27.1 Tobacco/Smoking Status: Tobacco use Status Tobacco use date assessed 07/04/24 09/30/24 14:11 Patient Tobacco Use Status Never used Tobacco 09/30/24 14:11 e-Cigarette/Vaping Use Never Used 09/30/24 14:11 Thrive Assessment: Date of Thrive Assessment Date Thrive assessed 07/04/24 09/30/24 14:11 Resp Effort & Inspection: normal respiratory effort Auscultation: clear to auscultation bilaterally Cardio Jugular venous distension: no JVD Rate: regular rate Rhythm: regular rhythm Heart sounds: S1 normal heart sound present and S2 normal heart sound present Extrem General: Yes full ROM Coding Level of Care Code Est Pt Level 4 (17850) Complex EM visit Add On G2211 Diagnoses Leg edema R60.0 Mild major depression F32.0 NORRIS (generalized anxiety disorder) F41.1 Pure hypercholesterolemia E78.00 Type 2 diabetes mellitus without complication, without long-term current use of insulin E11.9 Diabetes mellitus type: type 2 Diabetes mellitus 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 operator insulin use: without gristmill operator use Diabetes mellitus complication status: without complication Essential hypertension I10 Time Spent (min) 23 Assessment & Plan Assessment & Plan (1) Leg edema: Code(s): R60.0 - Localized edema Category: Medical (2) Mild major depression: Code(s): F32.0 - Major depressive disorder, single episode, mild Category: Medical (3) NORRIS (generalized anxiety disorder): Code(s): F41.1 - Generalized anxiety disorder Category: Medical (4) Pure hypercholesterolemia: Code(s): E78.00 - Pure hypercholesterolemia, unspecified Category: Medical (5) Diabetes mellitus: Code(s): E11.9 - Type 2 diabetes mellitus without complications Category: Medical Qualifiers: Diabetes mellitus type: type 2 Diabetes mellitus snf insulin use: without gristmill operator use Diabetes mellitus complication status: without complication Qualified Code(s): E11.9 - Type 2 diabetes mellitus without complications (6) Essential hypertension: Code(s): I10 - Essential (primary) hypertension Category: Medical Plan The goal is to manage the patient's leg swelling by modifying her hypertension medication regimen, specifically reducing the current dose of amlodipine and potentially introducing an alternative antihypertensive agent if needed. The patient will adjust her vitamin intake to prevent excess, administering possibly an alternate day regimen. Lab testing related to the leg swelling is ordered to investigate further potential causes. I will assist the patient in updating her home blood pressure monitoring equipment to ensure accurate assessments are achieved. Follow-up plans include reevaluation of swelling and monitoring the effectiveness of adjusted blood pressure management. Patient was informed and verbally consented to the use of an ambient scribe for clinic note documentation during this visit. I discussed the association between the amlodipine dosage and the recent swelling with the patient. I explained the rationale for reducing the dose and the possibility of introducing an alternative medication. I advised on the excessive nature of her current B12 supplementation, considering possible alternate day usage. I emphasized the importance of updated blood pressure monitoring equipment and offered assistance in replacing her outdated device. I outlined the necessity of further tests to rule out other causes of swelling. We discussed follow-ups to check on the swelling's status and effects of the medication adjustment. Orders: Orders Vitamin B12 and Folate Today E53.8 - Deficiency of other specified B group vitamins Vitamin D 25-OH Total Today E55.9 - Vitamin D deficiency, unspecified Complete Blood Count Auto Diff Today R41.3 - Other amnesia Lipid Panel Today E11.9 - Type 2 diabetes mellitus without complications, E78.5 - Hyperlipidemia, unspecified Microalbumin, Random (w Creat) Today E11.9 - Type 2 diabetes mellitus without complications, R80.9 - Proteinuria, unspecified Comprehensive Met. Panel Today E11.9 - Type 2 diabetes mellitus without complications NT-proBNP Today R60.0 - Localized edema Medications: New amlodipine 5 mg PO DAILY 90 tabs 1RF 90 days blood pressure test kit-medium ([employer] Blood Pressure Monitor kit) As directed 1 ea 0RF I10 - Essential (primary) hypertension losartan 25 mg PO DAILY 90 tabs 1RF 90 days I10 - Essential (primary) hypertension Discontinued amlodipine Discontinued Reason: Order 10 mg PO DAILY 90 days 90 tabs 1RF Patient Instructions: - Reduce amlodipine to 5 mg daily and monitor your blood pressure. - Adjust vitamin B12 supplementation to an alternate day schedule. - Acquire a new blood pressure monitor for more accurate readings. - Attend follow-up appointments to check for swelling and medication effectiveness. - Notify us if you notice any increase in swelling or adverse symptoms.
--- OUTSIDE RECORDS SUMMARY | 2024-09-30 16:16 | XMS_ITS ---
Author Organization [facility] Shaka Gómezley Address [address] [facility] [place] [address] Care Team Providers Care Business Intelligence Architect Name Role Phone Jacqueline CALL, Yvette Primary Care Provider Unavail able Elma Schmitt Unavailable [phone] Allergies No Known Allergies REASON FOR VISIT PCP: 12/2023, At Risk Footcare, Toe Irritation Medications Medication SIG (Take, Route, Frequency, Duration) Notes Start Date End Date Status metFORMIN HCl 850 MG 1 tablet with a felicita l Orally Once a day Active Oyster Shell Calcium/D3 Active Omeprazole 20 MG 1 capsule 30 minutes before morning meal Orally Once a day Active amLODIPine Besylate 10 MG 1 tablet Orally Once a day Active Aspirin 81 MG 1 tablet Orally Once a day Active Extra Depth Orthopedic Shoes (1 Pair) with Customized Heat Molded Multidensity Innersoles (3 Pair) as directed Dx: NIDDM/Polyneuropathy (E11.42), Hammertoe Foot Deformity (M20.41,M20.42), Preulcerative Skin Lesion(s) (L85.1 03/19/2024 Active Social History Tobacco Use: Social History Observation Description Date Details (start date - stop date) Never Smoker NA - NA Tobacco Use/Smoking Question Answer Notes Are you a: nonsmoker Additional Findings: Tobacco Non-User Current no n-smoker Alcohol Screen Question Answer Notes Did you have a drink containing alcohol in the p ast year? No Points 0 Interpretation Negative Tobacco use other than smoking: Question Answer Notes Are you an other tobacco user? No Problems Problem Type SNOMED Code ICD Code Onset Dates Problem Status W/U Status Risk Notes Problem Polyneuropathy due to type 2 diabetes mellitus (176284667) Type 2 diabetes mellitus with diabetic polyneuropathy (E11.42) Active confirmed Problem Acquired hammer toe of right foot (3644729218279886 ) Other hammer toe(s) (acquired), right foot (M20.41) Active confirmed Problem Acquired hammer toe of left foot (6070247197398895 ) Other hammer toe(s) (acquired), left foot (M20.42) Active confirmed Vital Signs Height 5 ft 2 in in 03/19/2024 Weight 149 lbs 03/19/2024 BMI 27.25 kg/m2 03/19/2024 Encounters Encounter Location Date Provider Diagnosis [facility] [address] [address] 03/19/2024 Elma Oskar Type 2 diabetes mellitus with diabetic polyneuropathy E11.42 ; Other hammer toe(s) (acquired), right foot M20.41 and Other hammer toe(s) (acquired), left foot M20.42 Assessments Encounter Date Diagnosis (ICD Code) Assessment Notes Treatment Notes Treatment Clinical Notes Section Notes 03/19/2024 Type 2 diabetes mellitus with diabetic polyneuropathy (ICD-10 - E11.42) 03/19/2024 Other hammer toe(s) (acquired), right foot (ICD-10 - M20.41) Patient Educated with: DIABETIC FOOT CARE INSTRUCTIONS. pdf (DIABETIC FOOT CARE INSTRUCTIONS. pdf) 03/19/2024 Other hammer toe(s) (acquired), left foot (ICD-10 - M20.42) Plan Of Treatment Medication Medication Name Sig Start Date Stop Date Notes Extra Depth Orthopedic Shoes (1 Pair) with Customized Heat Molded Multidensity Innersoles (3 Pair) as directed Dx: NIDDM/Polyneuropathy (E11.42), Hammertoe Foot Deformity (M20.41,M20.42), Preulcerative Skin Lesion(s) (L85.1 03/19/2024 Treatment Notes Assessment Notes Other hammer toe(s) (acquired), right fo ot Patient Educated with: DIABETIC FOOT CARE INSTRUCTIONS.pdf (DIABETIC FOOT CARE INSTRUCTIONS.pdf) Next Appt Details Follow Up: prn, Reason: Provider Name:Elma islas, 03/20/2025 01:30:00 PM, [address] [place], [address], Progress Notes * Vania MACKENZIEOB: [birth year] (73 yo F)Acc No.[id number]:03/19/2024 Progress Notes Patient:?Shima Mackenzie Provider:?Elma Schmitt DPM :1950???Age:73 Y???Sex:Female D ate:03/19/2024 Address:[address] [place], [place] [id number] Pcp:Yvette Phillips MD Subjective: * Chief Complaints: * ??? PCP: t Risk Footc areToe Irritation * HPI: ???At Risk footcare:?Pt States Last PCP Visit:?Date?12/27/2023 ???Toe pain:?Location:?B/L feet.?Duration:?several years.?Course:?worse.?Aggravated by:?shoes, any pressure.?Treatments:?change in shoes.? * ROS:?General/Constitutional:?Nausea?denies.?Vomiting?denies.?Hunger Thirst?denies.?Loss appetite?admits.?Chills?denies.?Fatigue?denies.?Fever?denies.?Night Sweats?denies.?Unexplained weight loss?denies.?Unexplained weight gain?denies.?HEENTM:?Dentures?denies.?Dizziness?admits.?Glasses/contacts?admits.?Retinopathy?de nies.?Blurred/double vision?denies.?TMJ?denies.?Discharge/drainage?denies.?Implants?denies.?Sore throat?denies.?Dental implants?denies.?Hard of hearing ?admits.?Difficulty chewing/swallowing/speaking?denies.?Nose bleeds?denies.?Sore mouth?denies.?Respiratory:?On Oxygen?denies.?Pneumonia/pleurisy?denies.?Bronchitis?denies.?Emphysema?denies.?C oughing?denies.?Cough blood?denies.?Shortness of breath?admits.?Wheezing?denies.?Cardiovascular:?Pacemaker?denies.?MVP?denies.?WPW?denies.?CHF?denies.?Heart attack?denies.?Septal defect?denies.?Rapid beat?denies.?Chest pain ?denies.?Atrial Fib.?denies.?Murmur/Palpitations?denies.?Gastrointestinal:?Hemorrhoids?denies.?Stomach/Abdominal pain?denies.?Dark blood stool?denies.?Irritable bowel ?denies.?Constipation?denies.?Diarrhea?denies.?Hematology:?Swelling?admits.?Clots?denies.?Varicose Veins?denies.?Bruising?denies.?Bleeding problem?denies.?Genitourinary:?Blood urine?denies.?Frequent/Painfu/urination/bladder control?denies.?Kidney stones?denies.?Infection (UTI)?denies.?Nephropathy?denies.?sex trans dis (STD)?denies.?Prostate?denies.?Musculoskeletal:?Hammertoes?denies.?Bunions?denies.?Back Pain?denies.?Muscle Cramps/ Resting?denies.?Muscle cramps / walking?denies.?Generalized aches and pains?admits.?Weakness?denies.?Integ.:?Canales?denies.?Scars?denies.?Corns/calluses?denies.?Ingrown nails?denies.?Painful nails?denies.?Open Sores?denies.?Rashes?denies.?Neurologic:?Difficulty sleeping?admits.?Brain disorder?denies.?Numbness?admits.?Balance trouble?admits.?Confusion?denies.?Fainting/blackouts?denies.?Tingling?admits.?Tr emors?denies.? * Medical History:? * Surgical History:?vaginal cl osing surgery 04/2023hysterectomy 1983 * Hospitalization/Major Diagno stic Procedure:?Denies Past Hospitalization * Family History:?Mother: dece ased, diagnosed with Diabetic - NIDDM.?Father: , diagnosed with Diabetic - NIDDM.?Siblings: poor circulation, diagnosed with Other malignant neoplasm of unspecified site.? * Social History:?Tobacco Use:?Tobacco Use/Smoking?Are you a:?nonsmoker ?Additional Findings: Tobacco Non-User?Current non-smoker ?Tobacco use other than smoking?Are you an other tobacco user??No ???Drugs/Alcohol:?Drugs?Have you used drugs other than those for medical reasons in the past 12 months??No ?Alcohol Screen?Did you have a drink containing alcohol in the past year??No ?Points?0 ?Interpretation?Negative ???Miscellaneous:?Caffeine: yes, frequency: 4 cups per day. ?Children: yes, 5. ?Exercise: yes, walking, bike riding. ?Marital status: . * Medications:?TakingmetFORMIN HCl 850 MG Tablet 1 tablet with a meal Orally Once a dayOyster Shell Calcium/D3 amLODIPine Besylate 10 MG Tablet 1 tablet Orally Once a dayAspirin 81 MG Tablet Chewable 1 tablet Orally Once a dayOmeprazole 20 MG Capsule Delayed Release 1 capsule 30 minutes before morning meal Orally Once a dayMedication List reviewed and reconciled with the patientTaking metFORMIN HCl 850 MG Tablet 1 tablet with a meal Orally Once a dayTaking Oyster Shell Calcium/D3 Taking amLODIPine Besylate 10 MG Tablet 1 tablet Orally Once a dayTaking Aspirin 81 MG Tablet Chewable 1 tablet Orally Once a dayTaking Omeprazole 20 MG Capsule Delayed Release 1 capsule 30 minutes before morning meal Orally Once a dayMedication List reviewed and reconciled with the patient * Allergies:?N.K.D.A.yes[Aller gies Verified] Objective: * Vitals:?Ht:5 ft 2 in, Wt:149 , BMI:27.25, Shoe size:8, BS:150, Ht-cm: 157.48 cm, Wt-k.59 kg. * ???Past Orders: ???Lab:HEMOGLOBIN A1C (GLYCO HEMOGLOBIN) (Order Date - 03/19/2024) (Collection Date - 12/19/2023) ? Value Reference Range ?TOTAL HEMOGLOBIN (HGBA1C) 6.0 * Examination: ???Ophthalmology Referral: ?DIABETES EYE EXAM?Diabetic Retinopathy Screening:?Yes ?Findings of Diabetic Eye Exam:?no retinopathy?Neurological: ?SENSORY:?Neurological exam demonstrates, reduced light touch sensation, reduced vibratory sensation at 1st metatarsophalangeal joint. Protective sensation intact at 10/10 sites using a SW?5.07 monofilament test.?Nails: ?NAILS are:?Within normal limits for length and thickness and painted,? 1-5 bilateral.?Vascular: ?DP PULSES(B):?2/4, B/L.?PT PULSES(B):?2/4 , B/L.?Orthopedic: ?MUSCLE STRENGTH:?5/5 all groups in a symmetrical fashion, B/L.?DIGITAL DEFORMITIES:?Digital contracture, PIPJ, 2-5 B/L, incompl-reducible to push-up test, no over, nor underlapping,?there is?evidence of shoe producing skin irritation.?FOOTWEAR:?worn, non-supportive, shoe gear properties exacerbate patient's foot/toe deformity.?General Examination: ?GENERAL APPEARANCE:?Reveals a pleasant, alert, well nourished, well- developed, well hydrated individual, who demonstrates proper attention to hygiene/body habitus, and is in no acute distress, Pt serves as own historian for office visit today, she is accompanied by her granddaughter who serves as additional historian/ peer tutor?, and/who is physically present in exam room at time of visit.?ORIENTED:?person, place, and time.?FOOT EXAM:?Lower Extremity Neurological Exam performed:?Yes ?Footwear Evaluation?Footwear Evaluation performed:?Yes??? Assessment: * Assessment: 1.?Other hammer toe(s) (acqu ired), right foot - M20.41, Chronic problem, Worse (4),Rx Management (4)?2.?Type 2 diabetes mellitus with diabetic polyneuropathy - E11.42 (Primary)?3. Other hammer toe(s) (acquired), left foot - M20.42, Chronic problem, Worse (4),Rx Management (4)? Plan: * Treatment: * Procedure Codes:? * Preventive Medicine:? ??Counseling:?Discussion:?-04: Office or other outpatient visit for the evaluation and management of a new patient, which required a medically appropriate history and/or examination and MODERATE level of DECISION MAKING for: 1 OR MORE CHRONIC PROBLEM(S) THATS WORSENING, 2 STABLE CHRONIC PROBLEMS, A NEWLY DIAGNOSED PROBLEM WITH UNCERTAIN PROGNOSIS, AN ACUTE COMPLICATED INJURY WITH MULTIPLE TREATMENT OPTIONS, OR AN ACUTE PROBLEM WITH ACCOMPANYING SYSTEMIC SYMPTOMS, THAT POSE(S) A MODERATE RISK OF MORBIDITY. THIS CONDITION MAY ALSO INCLUDE RX DRUG MANAGEMENT, OR A DECISON FOR MINOR SURGERY. The visit on the day of the encounter encompassed interpreting the data and educating the patient as to the nature of their condition, treatment options available according to their individual PMH, meds, allergies, and overall health/living conditions, as well as any potential risks or complications that may occur from a failure to adhere to, and participate in, the recommended course of therapy. The discussion included a complete verbal, and/or written explanation of the examination results, any x-rays taken, the proposed diagnosis, and outline of the treatment plan. A schedule for future care needs was also explained. The patient verbalized an understanding of the instructions at this time and agreed to be an active participant in their treatment. If the patient should think of any questions or concerns after the visit, I have encouraged the patient to call the office.?Digital Surgery:?Digital surgery was discussed with the patient, We elected to try conservative treatment at the present time, due to the patients medical history and increased asssociated post-operative risks.?Digital Treatment:?HT- I explained to the patient the possible etiologies of Hammertoes, including genetics/foot type/shoegear/activity level/exercise routine and the risks/benefits of all the different treatment options for their pain including: No treatment at all, Rest, Ice, New/supportive/wider/deeper Shoegear, Digital Padding/Strapping/Taping/Bracing/Gel protective sleeves, Foot/Ankle AFO Bracing, Stretching exercises, Deep Tissue Massage, Arch support/shoe inserts with splay metatarsal padding, and Custom orthoses. I insisted that any digital devices be removed daily and not worn overnight for safety. The patient is to carefully examine the toes daily for any skin irritation while using any splinting or padding device. The advantages and disadvantages of each option were discussed and the patients questions re: shoegear, padding, custom vs prefabricated inserts, activity level, and consistency in home treatment regimens for optimal success were answered to their verbally confirmed satisfaction.?Podiatric Counseling:?Patient is a well controlled Type 2 diabetic presenting to clinic for a diabetic foot check. Her exam was significant for mild neuropathy with protective sensation intact, no keratomas or pre ulcerative lesions appreciated. Patient denies any history of open lesions. She states she checks her feet daily. She was educated about the importance of diabetic foot care and told to call the office if any problems or questions arise.?Shoe Gear Counseling:?SHOE Rx - The patient was counseled in great detail on their muscoloskeletal foot and toe deformities which coincided with the dermatological presentations visualized on exam. We discussed how their deformities put the integrity of their feet at risk for potential pedal complications which makes the accomidative diabetic shoes and cutomizable inserts medically necessary. We discussed the different shoe and insert treatment types and options, as well as the important advantages for adhering to regularly wearing these accomidative devices daily. The patient was made aware of the fact that a failure to abide by these recommedations may be deleterious to their foot health as they are able to prevent many pedal complications such as skin irritation, skin ulceration, infection, and even loss of toe/foot/leg/or life. Time was also spent with the patient dispensing and discussing proper diabetic footcare techniques including daily skin moisturization, daily foot inspection for any interruption in skin integrity including open lesions, or sign of infection such as redness/malodor/drainage/swelling. Also discussed and recommended were procedures regarding daily shoe inspection for the presence of internal foreign bodies as well as any visualized irregular shoe or insert wear. Patient questions re: shoes, inserts, and self foot inspections were answered to their satisfaction as the patient verbally confirmed a full understanding of the above information. A Rx for Extra Depth Orthopedic Shoes with 3 pair of custom heat-molded inserts was dispensed.? * Follow Up:?prn * Images: * Sign off status: Completed true * Provider:?Elma Schmitt DPM Date:?1 Generated for Teja pittman/Claudia/Robertosmitting on:?09/30/2024 04:15 PM EDT History and Physical Notes * HPI (History of Present Illness) Category Sub-Category Detail Notes Category Not es Toe pain Location: B/L feet Duration: several years Course: worse Aggravated by: shoes, any pressure Treatments: change in shoes At Risk footcare Pt States Last PCP Visit: Date: Examination Category Sub-Category Detail Notes Category Not es Neurological SENSORY: Neurological exa m demonstrates, reduced light touch sensation, reduced vibratory sensation at 1st metatarsophalangeal joint. Protective sensation intact at 10/10 sites using a SW 5.07 monofilament test Orthopedic FOOTWEAR EVALUATION: worn, non-s upportive, shoe gear properties exacerbate patient's foot/toe deformity DIGITAL DEFORMITIES: Digital contracture , PIPJ, 2-5 B/L, incompl-reducible to push-up test, no over, nor underlapping, there is evidence of shoe producing skin irritation MUSCLE STRENGTH: 5/5 all groups in a symmetrical fashion, B/L General Examination GENERAL APPEARANCE: Reveals a pleasant, alert, well nourished, well-developed, well hydrated individual, who demonstrates proper attention to hygiene/body habitus, and is in no acute distress, Pt serves as own historian for office visit today, she is accompanied by her granddaughter who serves as additional historian/ peer tutor , and/who is physically present in exam room at time of visit FOOT EXAM: Lower Extremity Neurological Exa m performed:: Yes ORIENTED: person, place, and t elle Footwear Evaluation Footwear Evaluation performe d:: Yes Ophthalmology Referral DIABETES EYE EXAM Diabetic Retinopa thy Screening:: Yes Findings of Diabetic Eye Exam:: no retin opathy Vascular DP PULSES (B): 2/4, B/L PT PULSES (B): 2/4 , B/L Nails NAILS are: Within normal li mits for length and thickness and painted, 1-5 bilateral
--- OUTSIDE RECORDS SUMMARY | 2024-09-30 16:16 | XMS_ITS ---
Author Organization [facility] Address [address] [place] [address] Care Team Providers Care Field Service Tech Name Role Phone Jacqueline CALL, Yvette Primary Care Provider Unavail able Elma Schmitt Unavailable [phone] REASON FOR VISIT change appt site/date [facility]counters En[facility] [address] [facility] Elma Schmitt Plan Of Treatment Next Appt Details Provider Name:Elma isals, 03/20/2025 01:30:00 PM, [address] [place], [address], Progress Notes * Vania MACKENZIEOB: [birth year] (73 yo F)Acc No.[id number]:03/18/2024 Patient:?Shima Mackenzie :1950???Age:73 Y???Sex:Female Address:[address] [place] [address], [place] [address] , [place] [address] * true * Date:? Generated for Printi ng/Faxing/eTransmitting on:?09/30/2024 04:15 PM EDT
--- OUTSIDE RECORDS SUMMARY | 2024-09-30 16:16 | XMS_ITS ---
Author Organization [facility] Address [address] [place] [address] Care Team Providers Care Laundry Or Dry Cleaners Counter Clerk Name Role Phone Jacqueline CALL, Yvette Primary Care Provider Unavail Elma Moore Unavailable [phone] Encounters Encounter [facility] Date [facility] [address] [facility] Elma Schmitt Plan Of Treatment Next Appt Details Provider Name:Elma islas, 03/20/2025 01:30:00 PM, [address] [place], [address], Progress Notes * Vania MACKENZIEOB: [birth year] (74 yo F)Acc No.[id number]:04/10/2024 Progress Notes Patient:?Shima MACKENZIE Provider:?Elma Schmitt DPM :1950???Age:74 Y???Sex:Female D ate:04/10/2024 Address:[address] [place] [address] [id number] Pcp:Yvette Phillips MD Subjective: * Chief Complaints: * ??? * Medical History:? Objective: * Vitals:? Assessment: Plan: * Treatment: * Images: * The named appointment provid er may or may not be the originator of this progress note, and it is not deemed complete until electronically signed by the appointment provider. Sign off status: Pending * Provider:?Elma Schmitt DPM Date:?1 Generated for Teja pittman/Claudia/Kamila on:?09/30/2024 04:15 PM EDT
--- OUTSIDE RECORDS SUMMARY | 2024-09-30 16:16 | XMS_ITS | Patient Health Record ---
Author Organization [facility] Shaka whitt [place] Address [address] [place] [address] Care Team Providers Care Supervisor Rice Milling Name Role Phone Jacqueline CALL, Yvette Primary Care Provider Unavail able Elma Schmitt Unavailable [phone] Allergies No Known Allergies Results Component Value Reference Range Notes HEMOGLOBIN A1C (GLYCOHEMOGLO BIN) Reviewed date:03/19/2024 03:39:05 PM Interpretation: Performing Lab: Notes/Report: TOTAL HEMOGLOBIN (HGBA1C) 6.0 Reason For Referral Diagnosis 1 Pain in unspecified foot (M79.673) Referring Provider First Name Yvette Referring Provider Last Name Jacqueline [facility]erred Provider Elma Schmitt Referred Address [address] [facility],[place],[address], Referred Provider Specialty Podiatry Referral Priority Routine Medications Medication SIG (Take, Route, Frequency, Duration) [...] (M20.41,M20.42), Preulcerative Skin Lesion(s) (L85.1 03/19/2024 Active Aspirin 81 MG 1 tablet Orally Once a day Active Social History Tobacco Use: Social History [...] Problem Status W/U Status Risk Notes Problem Acquired hammer toe of right foot (3810957722461318 ) Other hammer toe(s) (acquired), right foot (M20.41) Active confirmed Problem Acquired hammer toe of left foot (6810880170830229 ) Other hammer toe(s) (acquired), left foot (M20.42) Active confirmed Problem Polyneuropathy due to type 2 diabetes mellitus (779575916) Type 2 diabetes mellitus with diabetic polyneuropathy (E11.42) Active confirmed Vital Signs Height 5 ft 2 in in 03/19/2024 Weight 149 lbs 03/19/2024 BMI 27.25 kg/m2 03/19/2024 Encounters Encounter [facility] Date [facility] [address] [facility]/19[facility] Elma Schmitt Type 2 diabetes mellitus with diabetic polyneuropathy E11.42 ; Other hammer toe(s) (acquired), right foot M20.41 and Other hammer toe(s) (acquired), left foot M20.[address] [address] 03/18/2024 [facility] [address] [place] [address] 03/18/2024 Elma Schmitt Assessments Encounter Date Diagnosis (ICD Code) Assessment Notes Treatment Notes Treatment Clinical Notes Section Notes 03/19/2024 Other hammer toe(s) (acquired), right foot (ICD-10 - M20.41) Patient Educated with: DIABETIC FOOT CARE INSTRUCTIONS. pdf (DIABETIC FOOT CARE INSTRUCTIONS. pdf) 03/19/2024 Type 2 diabetes mellitus with diabetic polyneuropathy (ICD-10 - E11.42) 03/19/2024 Other hammer toe(s) (acquired), left foot (ICD-10 - M20.42) Plan Of Treatment Next Appt Details Provider Name:Elma Bojorquez roshan, 03/20/2025 01:30:00 PM, [address] [place] [address], [address], Insurance Providers Payer Name Payer Address Payer Phone Subscriber Number Group Number Insured Name Patient Relationship to Insured Coverage Start Date Coverage End Date [facility] [address] [place] [phone] [id number] Shima Reese Self - patient is the insured Medical (General) History Medical History History ICD Code Back,Hip,and Knee pain Diabetic High Blood Pressure Surgical History Surgery Date(Month/Year) vaginal closing surgery 04/2023 hysterectomy 1984
--- OUTSIDE RECORDS SUMMARY | 2024-09-30 16:16 | XMS_ITS | Clinical Summary ---
Author Organization [employer] Address [address] [place] [address] 7[address] [place] [address] Care Team Providers Care Director Of Rehabilitation And Wellness Name Role Phone Unavailable Primary Care Provider Unavailabl e Immunizations Name Administration Dates Next Due Hep A, Adult 03/05/2012,07/22/2011 Hep B, adult 03/05/2012,09/16/2011,07/22/2011 Influenza High-dose Quadriva lent Preservative Free 03/28/2022 Influenza Quadrivalent Adjuvanted 03/17/2023,09/2019 Influenza injectable quadriv alent IIV4 with preservative 03/22/2017 Influenza injectable quadriv alent preservative free 05/23/2018 Influenza, High Dose Seasona l, Preservative Free 03/10/2016 Influenza, IIV3, injectable 04/09/2014 Influenza, Split (incl. fiona fied surface antigen) 04/29/2013,03/05/2012 Influenza, seasonal, injecta ble, preservative free 03/18/2024,02/24/2015 Pfizer Covid-19 Vaccine 12+ 03/18/2024 Pneumococcal Conjugate PCV 13 03/10/2016, 015 Pneumococcal Conjugate PCV 20 09/14/2022 Pneumococcal Polysaccharide PPSV23 09/21/2011 Tdap 09/21/2011 Varicella 09/21/2011 Social History Tobacco Use Types Packs/Day Years Used Date Smoking Tobacco: Never Assessed Comments Unknown Sex and Gender Information Value Date Recorded Sex Assigned at Female 04/18/2022 10:20 AM EDT Legal Sex Female 10:20 AM EDT Gender Identity Female 04/18/2022 10:20 AM EDT Sexual Orientation Straight 04/18/2022 10 :20 AM EDT Last Filed Vital Signs Vital Sign Reading Time Taken Comments Blood Pressure 150/90 07/22/2019 12:02 AM EST Pulse 62 07/22/2019 12:02 AM EST Temperature - - Respiratory Rate - - Oxygen Saturation - - Inhaled Oxygen Concentration - - Weight 70.8 kg (156 lb) 02/17/2020 12:08 AM EDT Height 159.3 cm (5' 2.7 ) 02/17/2020 12:08 AM ED T Body Mass Index 27.9 02/17/2020 12:08 AM EDT Plan of Treatment Health Maintenance Due Date Last Done Comments Depression Screening 1950 Lipid Panel 1950 SDOH Screening 1948 Alcohol/Substance Use Screening 1960 Tobacco Screening 1960 Hepatitis C Screening 1966 Zoster Vaccines (1 of 2) 11/16/2011 DTaP/Tdap/Td Vaccines (2 - Td or Tdap) 09/20/2021 09/21/2011 RSV Patients and Patients Aged 60 years or older (1 - 1-dose 75+ series) 2023 Hepatitis A Vaccines Completed 03/05/2012, 07/22/19 12 Hepatitis B Vaccines Completed 03/05/2012, 09/16/2011, 07/22/2011 Pneumococcal Vaccine: 50+ Years Completed 09/14/2022, 03/10/2016, 02/24/2015, Additional history exists COVID-19 Vaccine Completed 03/18/2024, 09/09/2020 Influenza Vaccine Completed 03/18/2024, , 03/28/2022, Additional history exists HIB Vaccines Aged Out No longer eligi ble based on patient's age to complete this topic HPV Vaccines Aged Out No longer eligi ble based on patient's age to complete this topic IPV Vaccines Aged Out No longer eligi ble based on patient's age to complete this topic Meningococcal Vaccine Aged Out No kristen johnny eligible based on patient's age to complete this topic RSV under 20 months Aged Out No longe r eligible based on patient's age to complete this topic Rotavirus Vaccines Aged Out No longer eligible based on patient's [place] [id number] [place] [address] [place], [place] [address] [address] [place], [place] [address] [address]
== END 2024-09-30 14:24 | disposition home or self-care (01) ==
LOC: HO.HMCH 13:58
PROVIDERS: PCP Internal Medicine; Visit Provider Internal Medicine
DX: E11.9 Type 2 diabetes mellitus without complications (principal); F32.0 Major depressive disorder, single episode, mild; R60.0 Localized edema; F41.1 Generalized anxiety disorder; E78.00 Pure hypercholesterolemia, unspecified; I10 Essential (primary) hypertension

== ENCOUNTER → 2024-09-30 13:58 | Outpatient (BNVA) | payer OTHER, SELFPAY | PROVIDERS: PCP Internal Medicine; Visit Provider Internal Medicine | DX: I10 Essential (primary) hypertension (principal); E11.9 Type 2 diabetes mellitus without complications; F32.0 Major depressive disorder, single episode, mild; F41.1 Generalized anxiety disorder; E78.00 Pure hypercholesterolemia, unspecified; E53.8 Deficiency of other specified B group vitamins; E55.9 Vitamin D deficiency, unspecified; R41.3 Other amnesia; R60.0 Localized edema; R80.9 Proteinuria, unspecified; Z79.84 Long term (current) use of oral hypoglycemic drugs; Z79.899 Other long term (current) drug therapy | CPT/HCPCS: 99212 ==

== ENCOUNTER 2024-10-03 08:00 | Outpatient (REF) | payer OTHER, SELFPAY ==
--- OUTSIDE RECORDS SUMMARY | 2024-10-03 08:07 | XMS_ITS | Patient Health Record ---
Author Organization [facility] Shaka whitt [place] Address [address] [place] [address] Care Team Providers Care Machine Operator Packaging Name Role Phone Jacqueline CALL, Yvette Primary Care Provider Unavail able Elma Schmitt Unavailable [phone] Allergies No Known Allergies Results Component Value Reference Range Notes HEMOGLOBIN A1C (GLYCOHEMOGLO BIN) Reviewed date:03/19/2024 03:39:05 PM Interpretation: Performing Lab: Notes/Report: TOTAL HEMOGLOBIN (HGBA1C) 6.0 Reason For Referral Diagnosis 1 Pain in unspecified foot (M79.673) Referring Provider First Name Yvette Referring Provider Last Name Jacqueline [facility] Provider Elma Schmitt Referred Address [address] [facility],[place],[address], Referred Provider Specialty Podiatry Referral Priority Routine [...] Problem Acquired hammer toe of right foot (2673181997069878 ) Other hammer toe(s) (acquired), right foot (M20.41) Active confirmed Problem Acquired hammer toe of left foot (3942345884931622 ) Other hammer toe(s) (acquired), left foot (M20.42) Active confirmed Problem Polyneuropathy due to type 2 diabetes mellitus (731551295) Type 2 diabetes mellitus with diabetic polyneuropathy (E11.42) Active confirmed Vital Signs Height 5 ft 2 in in 03/19/2024 Weight 149 lbs 03/19/2024 BMI 27.25 kg/m2 03/19/2024 Encounters Encounter [facility] Date [facility] [address] 03/19/2024 Elma Schmitt Type 2 diabetes mellitus with diabetic polyneuropathy E11.42 ; Other hammer toe(s) (acquired), right foot M20.41 and Other hammer toe(s) (acquired), left foot M20.[address] [address] 03/18/2024 [facility] [address] [place] [address] 03/18/2024 Elma Schmitt Assessments Encounter Date Diagnosis [...] Provider Name:Elma Bojorquez roshan, 03/20/2025 01:30:00 PM, [address] [place] [address], [phone], Insurance Providers Payer Name Payer Address Payer Phone Subscriber Number Group Number Insured Name Patient Relationship to Insured Coverage Start Date Coverage End Date [facility] [address] REGI Munoz [phone] [id number] Shima Reese Self - patient is the insured Medical (General) History Medical History History ICD Code Back,Hip,and Knee pain Diabetic High Blood Pressure Surgical History Surgery Date(Month/Year) vaginal closing surgery 04/2023 hysterectomy 1984
--- OUTSIDE RECORDS SUMMARY | 2024-10-03 08:07 | XMS_ITS | Clinical Summary ---
Author Organization [employer] Address [address] [place] [address] 7t [place] [address] Care Team Providers Care Battery Hand Name Role Phone Unavailable Primary Care Provider [...] age [place] [id number] [place] [address] [place], [place] [address] [address] [place], [place] [address] [address]
--- OUTSIDE RECORDS SUMMARY | 2024-10-03 08:07 | XMS_ITS ---
Author Organization [facility] Address [address] [place] [address] Care Team Providers Care Cruise Agent Name Role Phone Jacqueline CALL, Yvette Primary Care Provider Unavail Elma Moore Unavailable [phone] Encounters Encounter Location Date [facility] [address] 04/10/2024 Elma Schmitt Plan Of Treatment Next Appt Details Provider Name:Elma islas, 03/20/2025 01:30:00 PM, [address] [place], [address], Progress Notes * Vania MACKENZIEOB: [birth year] (74 yo F)Acc No.[id number]:04/10/2024 Progress Notes Patient:?Shima MACKENZIE Provider:?Elma Schmitt DPM :1950???Age:74 Y???Sex:Female D ate:04/10/2024 Address:[address] [place] [address] [id number] Pcp:Yvette Phillips MD Subjective: * Chief Complaints: [...] Schmitt DPM Date:?1 Generated for Teja pittman/Claudia/Kamila on:?10/03/2024 08:07 AM EDT
--- OUTSIDE RECORDS SUMMARY | 2024-10-03 08:07 | XMS_ITS ---
Author Organization [facility] Address [address] [place] [address] Care Team Providers Care Senior Ui Web Developer Name Role Phone Jacqueline CALL, Yvette Primary Care Provider Unavail able Elma Schmitt Unavailable [phone] REASON FOR VISIT change appt site/date Encounters Encounter [facility] Date [facility] [address] [facility]/18/[facility]24 Elma Schmitt Plan Of Treatment Next Appt Details Provider Name:Elma islas, 03/20/2025 01:30:00 PM, [address] [place], [address], Progress Notes * Vania MACKENZIEOB: [birth year] (73 yo F)Acc No.[id number]:03/18/2024 Patient:?Shima Mackenzie :1950???Age:73 Y???Sex:Female Address:[address] [place] [address], [place] [address] , [place] [address] * true * Date:? Generated for Printi ng/Fabrooklyng/eTransmitting on:?10/03/2024 08:07 AM EDT
--- OUTSIDE RECORDS SUMMARY | 2024-10-03 08:07 | XMS_ITS ---
Author Organization [facility] Shaka Gómezley Address [address] [facility] [place] [address] Care Team Providers Care Reverberatory Skimmer Name Role Phone Jacqueline CALL, Yvette Primary Care Provider Unavail able Elma Schmitt Unavailable [phone] Allergies No Known Allergies REASON FOR VISIT [...] Polyneuropathy due to type 2 diabetes mellitus (546729438) Type 2 diabetes mellitus with diabetic polyneuropathy (E11.42) Active confirmed Problem Acquired hammer toe of right foot (9020697631229111 ) Other hammer toe(s) (acquired), right foot (M20.41) Active confirmed Problem Acquired hammer toe of left foot (7517675471426305 ) Other hammer toe(s) (acquired), left foot (M20.42) Active confirmed Vital Signs Height 5 ft 2 in in 03/19/2024 Weight 149 lbs 03/19/2024 BMI 27.25 kg/m2 03/19/2024 Encounters Encounter Location Date Provider Diagnosis [facility] [address] [address] 03/19/2024 Elma Oskar Type 2 diabetes mellitus [...] Provider Name:Elma islas, 03/20/2025 01:30:00 PM, [address] [place], [address], Progress Notes * Vania MACKENZIEOB: [birth year] (73 yo F)Acc No.[id number]:03/19/2024 Progress Notes Patient:?Shima Mackenzie Provider:?Elma Schmitt DPM :1950???Age:73 Y???Sex:Female D ate:03/19/2024 Address:[address] [place], [place] [id number] Pcp:Yvette Phillips MD Subjective: * Chief Complaints: [...] her granddaughter who serves as additional historian/ shoe associate?, and/who is physically present in exam room [...] Provider:?Elma Schmitt DPM Date:?1 Generated for Teja pittman/Claudia/Anelitting on:?10/03/2024 08:06 AM EDT History and Physical Notes * HPI [...] her granddaughter who serves as additional historian/ shoe associate , and/who is physically present in exam [...]
[2024-10-03 08:37] LABS: MANUAL DIFF FLAG NO
[2024-10-03 08:47] LABS: Basophils Percent Auto 0.2 % (0-2); Eosinophils Absolute Auto 0.1 X10*3/uL (0.0-0.4); Eosinophils Percent Auto 1.8 % (0-4); Hematocrit 39.1 % (37.0-47.0); Hemoglobin 12.8 g/dl (12.0-16.0); Imm Gran Abs Auto 0.01 X10*3/uL (0.00-0.03); Imm Gran Pct Auto 0.2 % (0.0-0.4); Lymphocytes Absolute Auto 2.1 X10*3/uL (1.2-4.9); Mean Corpuscular HGB Conc 32.7 g/dl (31.0-35.0); Mean Corpuscular Hemoglobin 29.2 pg (27.0-33.0); Mean Corpuscular Volume 89.3 fL (80.0-98.0); Monocytes Absolute Auto 0.5 X10*3/uL (0.1-1.2); Monocytes Percent Auto 7.6 % (2-11); Neutrophils Absolute Auto 3.4 x10*3/uL (2.0-8.3); Neutrophils Percent Auto 55.2 % (45-73); Platelet Count 226 X10*3/uL (160-400); Red Blood Count 4.38 X10*6/uL (4.20-5.50); White Blood Count 6.1 X10*3/uL (4.8-10.8)
[2024-10-03 09:00] LABS: Alanine Aminotransferase 40 U/L (0-31); Albumin Level 4.1 g/dL (3.5-5.0); Alkaline Phosphatase 114 U/L (39-117); Anion Gap 12 (12-20); Aspartate Amino Transferase 34 U/L (5-31); Bilirubin Total 0.3 mg/dL (0.0-1.0); Blood Urea Nitrogen 12 mg/dL (9-16); Calcium 9.9 mg/dL (8.4-10.2); Carbon Dioxide 25 mmol/L (22-29); Chloride 109 mmol/L (96-108); Cholesterol 127 mg/dL (<200); Estimated Glomerular Filt Rate > 60; Glucose Random 154 mg/dL (60-115); HDL Cholesterol 45 mg/dL (>40); LDL Cholesterol Calculated 60 mg/dL (<100); Potassium 4.1 mmol/L (3.3-5.1); Sodium 142 mmol/L (135-145); Total Protein 7.2 g/dL (6.5-8.0); Triglycerides 114 mg/dL (<150)
[2024-10-03 09:21] LABS: Vitamin D 25-OH Total 52.6 ng/mL (>30)
[2024-10-03 09:28] LABS: Vitamin B12 > 2000 pg/mL (200-900)
[2024-10-03 09:36] LABS: Creatinine Urine 62.14 mg/dL; Microalbum/Creatinine Ratio Ur 19.3 ug/mg cr (<30)
[2024-10-07 23:48] LABS: NT-proBNP <36 pg/mL (<450)
== END 2024-10-03 08:01 | disposition home or self-care (01) ==
LOC: HO.LAB 08:00
PROVIDERS: PCP Internal Medicine; Visit Provider Internal Medicine
DX: R41.3 Other amnesia (principal); E78.5 Hyperlipidemia, unspecified; E11.9 Type 2 diabetes mellitus without complications; R60.0 Localized edema; E53.8 Deficiency of other specified B group vitamins; E55.9 Vitamin D deficiency, unspecified; R80.9 Proteinuria, unspecified
CPT/HCPCS: 36415; 80053; 80061; 82043; 82306; 82570; 82607; 82746; 83880; 85025

== ENCOUNTER 2024-11-22 08:14 | Outpatient (REF) | payer OTHER, SELFPAY ==
--- OUTSIDE RECORDS SUMMARY | 2024-11-22 08:19 | XMS_ITS | Patient Health Record ---
Author Organization [facility] Shaka whitt [place] Address [address] [place] [address] Care Team Providers Care Ent Consultant Name Role Phone Jacqueline CALL, Yvette Primary Care Provider Unavail able Elma Schmitt Unavailable [phone] Allergies No Known Allergies Results Component Value Reference Range Notes HEMOGLOBIN A1C (GLYCOHEMOGLO BIN) Reviewed date:03/19/2024 03:39:05 PM Interpretation: Performing Lab: Notes/Report: TOTAL HEMOGLOBIN (HGBA1C) 6.0 Reason For Referral Diagnosis 1 Pain in unspecified foot (M79.673) Referring Provider First Name Yvette Referring Provider Last Name Jacqueline [facility] Referred Provider Elma Schmitt Referred Address [address] [facility],[place],[address], Referred Provider Specialty Podiatry Referral Priority Routine [...] Problem Acquired hammer toe of right foot (9897733128232889 ) Other hammer toe(s) (acquired), right foot (M20.41) Active confirmed Problem Acquired hammer toe of left foot (7460428918010235 ) Other hammer toe(s) (acquired), left foot (M20.42) Active confirmed Problem Polyneuropathy due to type 2 diabetes mellitus (366127090) Type 2 diabetes mellitus with diabetic polyneuropathy (E11.42) Active confirmed Vital Signs Height 5 ft 2 in in 03/19/2024 Weight 149 lbs 03/19/2024 BMI 27.25 kg/m2 03/19/2024 Encounters Encounter Location Date Provider [facility] [address] 03/19/2024 Elam Schmitt Type 2 diabetes mellitus with diabetic polyneuropathy E11.42 ; Other hammer toe(s) (acquired), right foot M20.41 and Other hammer toe(s) (acquired), left foot M20.[address] [address] 03/18/2024 [facility] Schmitt [facility] [address] [place] [address] 03/18/2024 Elma Schmitt Assessments Encounter Date Diagnosis [...] Provider Name:Elma Bojorquez roshan, 03/20/2025 01:30:00 PM, [address] [place] [address], [phone], Insurance Providers Payer Name Payer Address Payer Phone Subscriber Number Group Number Insured Name Patient Relationship to Insured Coverage Start Date Coverage End Date [facility] [address] [place] [phone] [id number] Shima Reese Self - patient is the insured Medical (General) History Medical History History ICD Code Back,Hip,and Knee pain Diabetic High Blood Pressure Surgical History Surgery Date(Month/Year) vaginal closing surgery 04/2023 hysterectomy 1984
[2024-11-22 10:34] LABS: Albumin Level 4.3 g/dL (3.5-5.0); Alkaline Phosphatase 112 U/L (39-117); Anion Gap 13 (12-20); Aspartate Amino Transferase 27 U/L (5-31); Bilirubin Total 0.4 mg/dL (0.0-1.0); Blood Urea Nitrogen 11 mg/dL (9-16); Calcium 9.9 mg/dL (8.4-10.2); Carbon Dioxide 26 mmol/L (22-29); Chloride 107 mmol/L (96-108); Cholesterol 110 mg/dL (<200); Estimated Glomerular Filt Rate > 60; Glucose Fasting 145 mg/dL (60-99); HDL Cholesterol 45 mg/dL (>40); LDL Cholesterol Calculated 38 mg/dL (<100); Potassium 4.2 mmol/L (3.3-5.1); Sodium 142 mmol/L (135-145); Total Protein 7.2 g/dL (6.5-8.0); Triglycerides 135 mg/dL (<150)
[2024-11-22 10:39] LABS: Alanine Aminotransferase 31 U/L (0-31)
[2024-11-22 10:45] LABS: Appearance Urine Clear; Color Urine Yellow; Glucose Urine UA Negative (Negative); Leukocyte Esterase Urine Large (3+) (Negative); Nitrite Urine Negative (Negative); PH 7.5 (5.0-9.0); UMIC TRIGGER UACC YES; Urine Blood Negative (Negative); Urine Ketones Negative (Negative); Urine Protein Negative (Neg-Trace)
[2024-11-22 10:46] LABS: Vitamin D 25-OH Total 56.7 ng/mL (>30)
[2024-11-22 10:52] LABS: Bacteria Urine None Seen (None Seen); Hyaline Casts Urine 0-2 /LPF (0-2); RBC Urine 0-2 /HPF (0-2); UACC Culture Trigger YES
[2024-11-22 10:56] LABS: Folate 14.6 ng/mL (> or = 4.0); Vitamin B12 1068 pg/mL (200-900)
[2024-11-22 12:23] LABS: Creatinine Urine 44.37 mg/dL
== END 2024-11-22 08:15 | disposition home or self-care (01) ==
LOC: HO.LAB 08:14
PROVIDERS: PCP Internal Medicine; Visit Provider Internal Medicine
DX: E11.9 Type 2 diabetes mellitus without complications (principal)
CPT/HCPCS: 36415; 80053; 80061; 81001; 81003; 82043; 82306; 82570; 82607; 82746; 87086

== ENCOUNTER 2024-11-25 15:33 | Outpatient (AMB) | payer OTHER, SELFPAY ==
--- NOTE | 2024-11-25 15:44 | A.OFFPC_ITS ---
Vital Signs 11/25/24 15:45 Height 5 ft 2 in Weight 152 lb BMI 27.8 BP 136/70 Blood Pressure Location Lt brachial Position Sitting Intake Visit Reasons: bp,dm Intake Note: Patient here for a follow up BP, DM Chief Security Officer Required: No Accompanied by: Self / Same As Patient Allergies No Known Allergies Allergy (Verified 11/25/24 15:59) Medication List - Last Reconciled 11/25/24 by Yvette Jackson MD amlodipine 5 mg PO DAILY 90 days aspirin 81 mg PO DAILY blood pressure test kit-medium (inControl Blood Pressure Monitor kit) As directed blood sugar diagnostic Use 1 freestyle test strip once a day blood sugar diagnostic (OneTouch Ultra Test strips) As directed once daily blood-glucose meter (ViewglassTouch Ultra2 Meter) As directed calcium carbonate-vitamin D3 500 mg-5 mcg (200 unit) 2 tabs PO DAILY 90 days [diabetic socks As directed] fluoxetine 10 mg PO DAILY 90 days lancets (ViewglassTouch Delica Plus Lancet) As directed once per day loratadine (Allergy Relief (loratadine)) 10 mg PO DAILY PRN 90 days losartan 25 mg PO DAILY 90 days meclizine 25 mg PO DAILY PRN 10 days metformin 500 mg PO BID 90 days nystatin 1 mL buccal DAILY 60 days omeprazole 20 mg PO DAILY 30 days oxybutynin chloride 10%(100mg/gram) (Gelnique) 1 packet topical DAILY rosuvastatin 5 mg PO DAILY 90 days Shower Chair As directed Tobacco use date assessed: 07/04/24 Fall risk assessment: No Falls in past year Last assessed Fall Risk: 11/25/24 Dental Screening Dental Screen Date: 07/04/24 HPI HPI Comments History of Present Illness Details The patient is a 74-year-old female presenting with type 2 diabetes mellitus. She maintains an A1c of 7.9% and follows prescribed metformin. She expresses concern over beginning treatment with Jardiance, fearing side effects, but understands its potential benefits. With essential hypertension, she denies any recent symptoms and her blood pressure is well-controlled with her current medications. Her dyslipidemia is well-managed with rosuvastatin, and she is mindful of her diet. GERD and urinary incontinence are stable under treatment. There is a noted slight elevation in Vitamin B12 levels, attributed to previous supplementation, which has since been stopped. She also has some mild major depression with anxiety stable with SSRIs. [facility] Medical History Encounter for Medicare annual wellness exam Postmenopausal Chest pain Pure hypercholesterolemia Left knee pain GERD (gastroesophageal reflux disease) Memory loss Tinea pedis Transaminitis Vaginal prolapse Hypovitaminosis D Diabetes mellitus Essential hypertension Surgical History Hx of colonoscopy H/O: hysterectomy Family History Mother No problems noted. Father No problems noted. Social History Housing: Apartment Alcohol intake: never Patient Tobacco Use Status: Never used Tobacco e-Cigarette/Vaping Use: Never Used Second Hand Smoke Exposure: No service: No Current occupational status: retired Current occupation: rt hand Cognitive needs: No Hearing needs: No Vision needs: Yes (Glasses) Questionnaire Thrive Questionnaire Date Thrive assessed: 07/04/24 NORRIS-7 AMB Questionnaire NORRIS-7 Date NORRIS - 7 assessed: 07/04/24 Source: Developed by Drs. Steve Mead, Maria C Cope, Santos Villaseñor and colleagues, with an educational matti from [employer]. Review of Systems Const All systems reviewed & are unremarkable except as noted in HPI and below Card Denies chest pain at rest, Denies chest pain with activity, Denies edema, Denies irregular heart rhythm, Denies claudication, Denies dyspnea, Denies dyspnea on exertion, Denies orthopnea, Denies paroxysmal nocturnal dyspnea and Denies slow heart rate Resp Denies cough, Denies dyspnea and Denies dyspnea on exertion GI Denies abdominal pain, Denies change in bowel habits, Denies excessive flatus, Denies nausea and Denies vomiting Denies urinary incontinence, Denies urinary hesitancy and Denies urinary urgency Musc Denies abnormal gait, Denies atrophy, Denies deformity and Denies limited range of motion Skin/Breast Denies bleeding lesions, Denies changing lesions and Denies rash Neuro Denies abnormal gait and Denies lack of coordination Physical exam (Primary Care) Vital Signs: Last Vital Signs BP 136/70 11/25/24 15:45 BMI result Body Mass Index 27.8 Tobacco/Smoking Status: Tobacco use Status Tobacco use date assessed 07/04/24 11/25/24 15:52 Patient Tobacco Use Status Never used Tobacco 11/25/24 15:52 e-Cigarette/Vaping Use Never Used 11/25/24 15:52 Thrive Assessment: Date of Thrive Assessment Date Thrive assessed 07/04/24 11/25/24 15:52 Resp Effort & Inspection: normal respiratory effort Auscultation: clear to auscultation bilaterally Cardio Jugular venous distension: no JVD Rate: regular rate Rhythm: regular rhythm Heart sounds: S1 normal heart sound present and S2 normal heart sound present Extrem General: Yes full ROM Results AMB Hemoglobin A1c AMB Hemoglobin A1c 7.9 % Last Edit by SONIA Pennington on 11/25/24 16:0 4 Results Reviewed Results Reviewed: Laboratory Last Values Hgb A1c (Clinic) 7.9 % (4.0-6.0) H 11/25/24 15:43 Coding Level of Care Code Est Pt Level 4 (53510) Complex EM visit Add On G2211 Diagnoses Type 2 diabetes mellitus without complication, without long-term current use of insulin E11.9 Diabetes mellitus type: type 2 Diabetes mellitus oil heaterman insulin use: without intermediate use Diabetes mellitus complication status: without complication Essential hypertension I10 Pure hypercholesterolemia E78.00 Mild major depression F32.0 NORRIS (generalized anxiety disorder) F41.1 Time Spent (min) 22 Assessment & Plan Assessment & Plan (1) Diabetes mellitus: Code(s): E11.9 - Type 2 diabetes mellitus without complications Category: Medical Qualifiers: Diabetes mellitus type: type 2 Diabetes mellitus oil heaterman insulin use: without intermediate use Diabetes mellitus complication status: without complication Qualified Code(s): E11.9 - Type 2 diabetes mellitus without complications (2) Essential hypertension: Code(s): I10 - Essential (primary) hypertension Category: Medical (3) Pure hypercholesterolemia: Code(s): E78.00 - Pure hypercholesterolemia, unspecified Category: Medical (4) Mild major depression: Code(s): F32.0 - Major depressive disorder, single episode, mild Category: Medical (5) NORRIS (generalized anxiety disorder): Code(s): F41.1 - Generalized anxiety disorder Category: Medical Plan Continued metformin therapy for diabetes management is essential, adding Jardiance cautiously due to cost and side effects concerns, but scheduled after breakfast to improve adherence. Antihypertensives are effective; continue current dosing. Dyslipidemia continues under rosuvastatin; encourage diet vigilance. Omeprazole should be continued for GERD. No intervention for elevated , noting previous supplementation has ceased. If needed, provide referral to ophthalmology for routine care. Patient was informed and verbally consented to the use of an ambient scribe for clinic note documentation during this visit. I clarified to the patient the potential benefits and risks of Jardiance for diabetes management, emphasizing that it has usage beyond glycemic control even in non-diabetics. We agreed on a post-breakfast schedule to aid integrating it into her daily regimen. I reinforced the importance of maintaining current antihypertensive therapy and encouraged continuing the cholesterol-lowering regimen. We discussed the slight elevation in B12 levels, attributing it to prior supplement use without current need for intervention. Ensured understanding of her current stable condition, addressing medication costs and adherence, and offered assistance for any further ophthalmic evaluations. Orders: Orders AMB Hemoglobin A1c Today E11.9 - Type 2 diabetes mellitus without complications Lipid Panel 4 Months E11.9 - Type 2 diabetes mellitus without complications, E78.5 - Hyperlipidemia, unspecified Microalbumin, Random (w Creat) 4 Months E11.9 - Type 2 diabetes mellitus without complications, R80.9 - Proteinuria, unspecified Comprehensive [place]. Panel Fast 4 Months E11.9 - Type 2 diabetes mellitus without complications Vitamin D 25-OH Total 4 Months E55.9 - Vitamin D deficiency, unspecified Vitamin B12 and Folate 4 Months E53.8 - Deficiency of other specified B group vitamins Referrals Ophthalmology Referral E11.9 - Type 2 diabetes mellitus without complications Patient Instructions: - Take Jardiance after breakfast as prescribed. - Continue current antihypertensives and lifestyle modifications. - Monitor blood glucose levels regularly. - Continue taking omeprazole for GERD. - Discontinue high-dose Vitamin B12 supplements. - Contact for an ophthalmology referral if needed.
[2024-11-25 15:45] VITALS: BP 136/70; BMI 27.8
--- OUTSIDE RECORDS SUMMARY | 2024-11-25 17:15 | XMS_ITS | Clinical Summary ---
Author Organization [employer] Address [address] [place] [address] [address] [place] [address] Care Team Providers Care Truck Hop Name Role Phone Unavailable Primary Care Provider Unavailabl e Immunizations Immunization Administration Dates Next Due Hep A, Adult [...] older (1 - 1-dose 75+ series) 2023 COVID-19 Vaccine (3 - 2023- season) 2024 03/18/2024, 09/09/2020 Hepatitis A Vaccines Completed 03/05/2012, 07/22/19 12 Hepatitis B Vaccines Completed 03/05/2012, 09/16/2011, 07/22/2011 Pneumococcal Vaccine: 50+ Years Completed 09/14/2022, 03/10/2016, 02/24/2015, Additional history exists Influenza Vaccine Completed 03/18/2024, , 03/28/2022, Additional history exists HIB Vaccines Aged Out No longer eligi ble based on patient's age to complete this topic HPV Vaccines Aged Out No longer eligi ble based on patient's age to complete this topic IPV Vaccines Aged Out No longer eligi ble based on patient's age to complete this topic Meningococcal B Vaccine Aged Out No l onger eligible based on patient's age to complete this topic Meningococcal Vaccine Aged Out No kristen johnny eligible based on patient's age to complete this topic RSV under 20 months Aged Out No longe r eligible based on patient's age to complete this topic Rotavirus Vaccines Aged Out No longer eligible based on patient's age to complete this topic Insurance [place] [employer] SUPPLEMENT [address] [place] [address], [place] [address] [place] [address] [place] [address] [place] [address]
== END 2024-11-25 16:15 | disposition home or self-care (01) ==
LOC: HO.HMCH 15:34
PROVIDERS: PCP Internal Medicine; Visit Provider Internal Medicine
DX: E11.9 Type 2 diabetes mellitus without complications (principal); I10 Essential (primary) hypertension; E78.00 Pure hypercholesterolemia, unspecified; F32.0 Major depressive disorder, single episode, mild; F41.1 Generalized anxiety disorder

== ENCOUNTER → 2024-11-25 15:33 | Outpatient (BNVA) | payer OTHER, SELFPAY | PROVIDERS: PCP Internal Medicine; Visit Provider Internal Medicine | DX: E11.9 Type 2 diabetes mellitus without complications (principal); I10 Essential (primary) hypertension; E78.00 Pure hypercholesterolemia, unspecified; F32.0 Major depressive disorder, single episode, mild; F41.1 Generalized anxiety disorder; Z79.84 Long term (current) use of oral hypoglycemic drugs; Z79.899 Other long term (current) drug therapy | CPT/HCPCS: 83036; 99212 ==

== ENCOUNTER 2025-01-07 12:25 | Outpatient (REF) | payer OTHER, SELFPAY ==
--- OUTSIDE RECORDS SUMMARY | 2025-01-07 13:27 | XMS_ITS | Clinical Summary ---
Author Organization [employer] Address [address] [place] [address] [address] [place] [address] Care Team Providers Care Hand Slitter Name Role Phone Unavailable Primary Care Provider [...] 75+ series) 2023 COVID-19 Vaccine (3 - season) 2024 03/18/2024, 09/09/2020 Influenza Vaccine (#1) 2025 4, 03/17/2023, 03/28/2022, Additional history exists Hepatitis A Vaccines Completed 03/05/2012, 07/22/19 12 Hepatitis B Vaccines Completed 03/05/2012, 09/16/2011, 07/22/2011 Pneumococcal Vaccine: 50+ Years Completed 09/14/2022, 03/10/2016, 02/24/2015, Additional history exists HIB Vaccines Aged Out [...] patient's age to complete this topic Insurance [place] SU[employer]LEMENT [address] [place] [address], [place] [address] , [place] [address]
--- OUTSIDE RECORDS SUMMARY | 2025-01-07 13:28 | XMS_ITS | Patient Health Record ---
Author Organization [facility] [place]aka [place] Address [address] [place] [address] Care Team Providers Care Inside Sales Territory Manager Name Role Phone Jacqueline CALL, Yvette Primary Care Provider Unavail able Elma Schmitt Unavailable [phone] Allergies No Known Allergies Results Component Value Reference Range Notes HEMOGLOBIN A1C (GLYCOHEMOGLO BIN) Reviewed date:03/19/2024 03:39:05 PM Interpretation: Performing Lab: Notes/Report: TOTAL HEMOGLOBIN (HGBA1C) 6.0 Reason For Referral Diagnosis 1 Pain in unspecified foot (M79.673) Referring Provider First Name Yvette Referring Provider Last Name Jacqueline [facility] Referred Provider Elma Schmitt Referred Address [address] [facility],[place], [place],[address], Referred Provider Specialty Podiatry Referral Priority Routine [...] Problem Acquired hammer toe of right foot (2557930324599253 ) Other hammer toe(s) (acquired), right foot (M20.41) Active confirmed Problem Acquired hammer toe of left foot (4306455794547537 ) Other hammer toe(s) (acquired), left foot (M20.42) Active confirmed Problem Polyneuropathy due to type 2 diabetes mellitus (899220984) Type 2 diabetes mellitus with diabetic polyneuropathy (E11.42) Active confirmed Vital Signs Height 5 ft 2 in in 03/19/2024 Weight 149 lbs 03/19/2024 BMI 27.25 kg/m2 03/19/2024 Encounters Encounter Location Date Provider [facility] [address] 03/19/2024 Elma Schmitt Type 2 diabetes mellitus with diabetic polyneuropathy E11.42 ; Other hammer toe(s) (acquired), right foot M20.41 and Other hammer toe(s) (acquired), left foot M20.[address] [address] 03/18/2024 [facility] [address] [place] [phone] 03/18/2024 Elma Schmitt Assessments Encounter Date Diagnosis [...] Provider Name:Elma Bojorquez roshan, 03/20/2025 01:30:00 PM, [address] [place] [address], [phone], Insurance Providers Payer Name Payer Address Payer Phone Subscriber Number Group Number Insured Name Patient Relationship to Insured Coverage Start Date Coverage End Date [facility] [address] [place] [phone] [id number] Shima Reese Self - patient is the insured Medical (General) History Medical History History ICD Code Back,Hip,and Knee pain Diabetic High Blood Pressure Surgical History Surgery Date(Month/Year) vaginal closing surgery 04/2023 hysterectomy 1984
== END 2025-01-07 12:26 | disposition home or self-care (01) ==
LOC: HO.MAMMO 12:25
PROVIDERS: PCP Internal Medicine; Visit Provider Internal Medicine
DX: Z12.31 Encounter for screening mammogram for malignant neoplasm of breast (principal)
CPT/HCPCS: 77063; 77067

== ENCOUNTER → 2025-01-07 12:30 | Outpatient (BNV) | payer OTHER, SELFPAY | PROVIDERS: PCP Internal Medicine; Visit Provider Internal Medicine | DX: Z12.31 Encounter for screening mammogram for malignant neoplasm of breast (principal) | CPT/HCPCS: 77063; 77067 ==

== ENCOUNTER 2025-03-24 08:20 | Outpatient (REF) | payer OTHER, SELFPAY ==
--- OUTSIDE RECORDS SUMMARY | 2024-04-10 10:00 | XMS_ITS ---
Author Organization [facility] Address [address] [place] [id number] Care Team Providers Care Electrical Contacts Adjuster Name Role Phone Jacqueline CALL, Yvette Primary Care Provider Unavail Elma Moore Unavailable [phone] Encounters Encounter [facility] Date [facility] [address] [facility] Elma Schmitt Plan Of Treatment Next Appt Details Provider Name:Elma islas, 04/02/2025 02:00:00 PM, [address] [place], [id number], Progress Notes * Vania MACKENZIEOB: [birth year] (74 yo F)Acc No.[id number]:04/10/2024 Progress Notes Patient: Tripp HERNANDEZROMÁN Shima Provider: Fanta Schmitt DPM :1950 A ge:74 Y S ex:Female Date:04/10/2024 Address:[address] [place] [address] [id number] Pcp:Yvette Phillips MD Subjective: * Chief Complaints: * * Medical History: Objective: * Vitals: Assessment: Plan: * Treatment: * Images: * The named appointment provid er may or may not be the originator of this progress note, and it is not deemed complete until electronically signed by the appointment provider. Sign off status: Pending * Provider: Fanta Schmitt DPM Date: 1 Generated for Teja pittman/Claudia/Kamila on: 08:44 AM EDT
--- OUTSIDE RECORDS SUMMARY | 2025-03-20 09:30 | XMS_ITS ---
Author Organization [facility] Address [address] [place] [phone] Care Team Providers Care Marketing Liaison Name Role Phone Jacqueline CALL, Yvette Primary Care Provider Unavail Elma Moore Unavailable [phone] Gallegos Encounters Encounter Location Date Provider Diagnosis [address] [address] 03/20/2025 Elma Schmitt Plan Of Treatment Next Appt Details Provider Name:Elma islas, 04/02/2025 02:00:00 PM, [address] [place] [address], [phone], Progress Notes * Vania MACKENZIEOB: [birth year] (74 yo F)Acc No.[id number]:03/20/2025 Progress Note Patient: Xenia GARCIAan Provider: Fanta Schmitt DPM :1950 A ge:74 Y S ex:Female Date:03/20/2025 Address:[address] [place] [address] [address] [id number] Pcp:Yvette Phillips MD Subjective: * Chief Complaints: * [address] Gallegos. * Medical History: Objective: * Vitals: Assessment: Plan: * Treatment: * Images: * The named appointment provid er may or may not be the originator of this progress note, and it is not deemed complete until electronically signed by the appointment provider. Sign off status: Pending * Provider: Fanta Schmitt DPM Date: Generated for Teja Bland on: 08:43 AM EDT
--- OUTSIDE RECORDS SUMMARY | 2025-03-24 08:44 | XMS_ITS | Clinical Summary ---
Author Organization [employer] Address [address] [place] [address] [address] [place] [address] Care Team Providers Care Sustainable Agriculture Specialist Name Role Phone Unavailable Primary Care Provider [...] series) 2023 COVID-19 Vaccine (3 - season) 2025 03/18/2024, 09/09/2020 Influenza Vaccine (#1) 2025 4, [...] patient's age to complete this topic Insurance [employer] [address] [place] [address], [place] [address] , [place] [address]
--- OUTSIDE RECORDS SUMMARY | 2025-03-24 08:44 | XMS_ITS | Patient Health Record ---
Author Organization [facility] [place] Address [address] [place] [address] Care Team Providers Care Mercury Cracking Tester Name Role Phone Jacqueline CALL, Yvette Primary Care Provider Unavail able Oskar Elma Unavailable [phone] Allergies No Known Allergies Reason For Referral No Information Medications Medication SIG (Take, Route, Frequency, Duration) [...] Problem Acquired hammer toe of right foot (0119847948775762 ) Other hammer toe(s) (acquired), right foot (M20.41) Active confirmed Problem Acquired hammer toe of left foot (2222594984513459 ) Other hammer toe(s) (acquired), left foot (M20.42) Active confirmed Problem Polyneuropathy due to type 2 diabetes mellitus (374435055) Type 2 diabetes mellitus with diabetic polyneuropathy (E11.42) Active confirmed Encounters Encounter Location Date Provider Diagnosis [facility] [place] [address] [place] [address] 03/18/2025 Elma Schmitt Plan Of Treatment Next Appt Details Provider Name:Elma Reno islas, 04/02/2025 02:00:00 PM, [address] [place] [address], [phone], Insurance Providers Payer Name Payer Address Payer Phone Subscriber Number Group Number Insured Name Patient Relationship to Insured Coverage Start Date Coverage End Date [facility] [address] [place] [phone] [id number] Shima Reese Self - patient is the insured Medical (General) History Medical History History ICD Code Back,Hip,and Knee pain Diabetic High Blood Pressure Surgical History Surgery Date(Month/Year) vaginal closing surgery 04/2023 hysterectomy 1984
[2025-03-24 09:30] LABS: Appearance Urine Clear; Glucose Urine UA Negative (Negative); PH 5.5 (5.0-9.0); Specific Gravity - Urine 1.015 (1.005-1.025); UMIC TRIGGER UACC YES
[2025-03-24 09:45] LABS: Alanine Aminotransferase 34 U/L (0-31); Albumin Level 4.5 g/dL (3.5-5.0); Alkaline Phosphatase 87 U/L (39-117); Anion Gap 13 (12-20); Aspartate Amino Transferase 32 U/L (5-31); Blood Urea Nitrogen 10 mg/dL (9-16); Calcium 9.4 mg/dL (8.4-10.2); Carbon Dioxide 24 mmol/L (22-29); Chloride 109 mmol/L (96-108); Cholesterol 102 mg/dL (<200); Estimated Glomerular Filt Rate > 60; HDL Cholesterol 37 mg/dL (>40); Potassium 3.9 mmol/L (3.3-5.1); Sodium 142 mmol/L (135-145); Total Protein 7.3 g/dL (6.5-8.0); Triglycerides 109 mg/dL (<150)
[2025-03-24 10:15] LABS: Folate 16.7 ng/mL (> or = 4.0); Vitamin B12 > 2000 pg/mL (200-900)
[2025-03-24 10:23] LABS: UACC Culture Trigger YES
[2025-03-24 10:43] LABS: Microalbum/Creatinine Ratio Ur 6.4 ug/mg cr (<30)
== END 2025-03-24 08:21 | disposition home or self-care (01) ==
LOC: HO.LAB 08:20
PROVIDERS: Visit Provider Internal Medicine
DX: E11.9 Type 2 diabetes mellitus without complications (principal); E53.8 Deficiency of other specified B group vitamins; E78.5 Hyperlipidemia, unspecified; E55.9 Vitamin D deficiency, unspecified; R80.9 Proteinuria, unspecified
CPT/HCPCS: 36415; 80053; 80061; 81001; 82043; 82306; 82570; 82607; 82746; 87086

== ENCOUNTER 2025-03-27 14:36 | Outpatient (AMB) | payer OTHER, SELFPAY ==
--- NOTE | 2025-03-27 14:38 | MHC.PC.OV ---
Vital Signs 03/27/25 14:43 Height 5 ft 2 in Weight 145 lb BMI 26.5 BP 126/80 Blood Pressure Location Lt brachial Position Sitting Pulse 79 Pulse Source Pulse Oximeter Pulse Oximetry (%) 98 Oxygen Delivery Method Room Air Intake Visit Reasons: dm Dispute Coordinator Required: No Accompanied by: Self / Same As Patient Allergies No Known Allergies Allergy (Verified 03/27/25 15:17) Medication List - Last Reconciled 03/27/25 by Yvette Jackson MD [adult diapers pull-ups Use 8 diapers daily] amlodipine 5 mg PO DAILY 90 days aspirin 81 mg PO DAILY blood pressure test kit-medium (inControl Blood Pressure Monitor kit) As directed blood sugar diagnostic Use 1 freestyle test strip once a day blood sugar diagnostic (OneTouch Ultra Test strips) As directed once daily blood-glucose meter (FoxtrotTouch Ultra2 Meter) As directed calcium carbonate-vitamin D3 500 mg-5 mcg (200 unit) 2 tabs PO DAILY 90 days [diabetic socks As directed] fluoxetine 10 mg PO DAILY 90 days lancets (FoxtrotTouch Delica Plus Lancet) As directed once per day loratadine (Allergy Relief (loratadine)) 10 mg PO DAILY PRN 90 days losartan 25 mg PO DAILY 90 days meclizine 25 mg PO DAILY PRN 10 days metformin 500 mg PO BID 90 days nystatin 1 mL buccal DAILY 60 days omeprazole 20 mg PO DAILY 30 days oxybutynin chloride 10%(100mg/gram) (Gelnique) 1 packet topical DAILY rosuvastatin 5 mg PO DAILY 90 days Shower Chair As directed Tobacco use date assessed: 03/27/25 Last assessed Fall Risk: 03/27/25 Dental Screening Dental Screen Date: 03/27/25 HPI HPI Comments History of Present Illness Details The patient is a 75-year-old female presenting with a follow-up for diabetes management. Diabetes Mellitus: The patient's Hemoglobin A1c is currently at 7.2%, which is an improvement from a previous level of 7.9%. She has been managing her diabetes with metformin, taken twice daily. Hypercholesterolemia: The patient is on rosuvastatin 5 mg, which has effectively reduced her LDL cholesterol to below 70 mg/dL. Vitamin B12 Elevation: The patient has a slightly elevated Vitamin B12 level, despite discontinuing a supplement that was previously contributing to this elevation. Urinary Incontinence: The patient uses diapers as a precautionary measure for urinary incontinence and has opted against surgical intervention. Hypertension: The patient's blood pressure is well-controlled with amlodipine and losartan. Gastroesophageal Reflux Disease: The patient uses omeprazole as needed for acid reflux. Allergic Rhinitis: The patient takes loratadine as needed for allergy symptoms. [facility] Medical History (Updated 03/27/25 @ 21:57 by Yvette Jackson MD) Mild major depression Encounter for Medicare annual wellness exam Postmenopausal Chest pain Pure hypercholesterolemia Left knee pain GERD (gastroesophageal reflux disease) Memory loss Tinea pedis Transaminitis Vaginal prolapse Hypovitaminosis D Diabetes mellitus Essential hypertension Surgical History Hx of colonoscopy H/O: hysterectomy Family History Mother No problems noted. Father No problems noted. Social History Housing: Apartment Alcohol intake: never Patient Tobacco Use Status: Never used Tobacco e-Cigarette/Vaping Use: Never Used Second Hand Smoke Exposure: No service: No Current occupational status: retired Current occupation: rt hand Cognitive needs: No Hearing needs: No Vision needs: Yes (Glasses) Questionnaire Thrive Questionnaire Date Thrive assessed: 07/04/24 AUDIT C Alcohol Use Questionnaire (AUDIT-C) 1. How often do you have a drink containing alcohol?: Monthly or less 2. How many drinks containing alcohol do you have on a typical day when you are drinking?: 1 or 2 3. How often do you have six or more drinks on one occasion?: Never Total Score: 1 Score Reviewed/Action Taken: No NORRIS-7 AMB Questionnaire NORRIS-7 Date NORRIS - 7 assessed: 07/04/24 Source: Developed by Drs. Steve Mead, Maria C Cope, Santos Villaseñor and colleagues, with an educational matti from [employer]. Review of Systems Const All systems reviewed & are unremarkable except as noted in HPI and below Card Denies chest pain at rest, Denies chest pain with activity, Denies edema, Denies irregular heart rhythm, Denies claudication, Denies dyspnea, Denies dyspnea on exertion, Denies orthopnea, Denies paroxysmal nocturnal dyspnea and Denies slow heart rate Resp Denies cough, Denies dyspnea and Denies dyspnea on exertion GI Denies abdominal pain, Denies change in bowel habits, Denies excessive flatus, Denies nausea and Denies vomiting Physical exam (Primary Care) Vital Signs: Last Vital Signs Pulse 79 03/27/25 14:43 BP 126/80 03/27/25 14:43 Pulse Ox 98 03/27/25 14:43 Oxygen Delivery Method Room Air 03/27/25 14:43 BMI result Body Mass Index 26.5 Tobacco/Smoking Status: Tobacco use Status Tobacco use date assessed 03/27/25 03/27/25 14:41 Patient Tobacco Use Status Never used Tobacco 03/27/25 14:41 e-Cigarette/Vaping Use Never Used 03/27/25 14:41 Thrive Assessment: Date of Thrive Assessment Date Thrive assessed 07/04/24 03/27/25 14:41 Resp Effort & Inspection: normal respiratory effort Auscultation: clear to auscultation bilaterally Cardio Jugular venous distension: no JVD Rate: regular rate Rhythm: regular rhythm Heart sounds: S1 normal heart sound present and S2 normal heart sound present Extrem General: Yes full ROM Results AMB Hemoglobin A1c AMB Hemoglobin A1c 7.2 % Last Edit by SONIA Donohue on 03/27/25 15:19 Results Reviewed Results Reviewed: Laboratory Last Values Hgb A1c (Clinic) 7.2 % (4.0-6.0) H 03/27/25 15:18 Coding Level of Care Code Est Pt Level 4 (80883) Complex EM visit Add On G2211 Diagnoses Essential hypertension I10 Pure hypercholesterolemia E78.00 Type 2 diabetes mellitus without complication, without long-term current use of insulin E11.9 Diabetes mellitus type: type 2 Diabetes mellitus superintendent container terminal insulin use: without superintendent container terminal use Diabetes mellitus complication status: without complication Gastroesophageal reflux disease, unspecified whether esophagitis present K21.9 Esophagitis presence: esophagitis presence not specified Time Spent (min) 21 Assessment & Plan Assessment & Plan (1) Essential hypertension: Code(s): I10 - Essential (primary) hypertension Category: Medical (2) Pure hypercholesterolemia: Code(s): E78.00 - Pure hypercholesterolemia, unspecified Category: Medical (3) Diabetes mellitus: Code(s): E11.9 - Type 2 diabetes mellitus without complications Category: Medical Qualifiers: Diabetes mellitus type: type 2 Diabetes mellitus prison insulin use: without prison use Diabetes mellitus complication status: without complication Qualified Code(s): E11.9 - Type 2 diabetes mellitus without complications (4) GERD (gastroesophageal reflux disease): Code(s): K21.9 - Gastro-esophageal reflux disease without esophagitis Category: Medical Qualifiers: Esophagitis presence: esophagitis presence not specified Qualified Code(s): K21.9 - Gastro-esophageal reflux disease without esophagitis Plan Plan Patient was informed and verbally consented to the use of an ambient scribe for clinic note documentation during this visit. 1. Diabetes Mellitus The patient's diabetes management includes metformin taken twice daily, with a current Hemoglobin A1c of 7.2%, indicating improved glycemic control. 2. Hypercholesterolemia The patient is on rosuvastatin 5 mg, which has effectively reduced her LDL cholesterol to below 70 mg/dL. 3. Vitamin B12 Elevation The patient has discontinued the Vitamin B12 supplement, yet levels remain slightly elevated. 4. Urinary Incontinence The patient uses diapers for urinary incontinence and has decided against surgical intervention. 5. Hypertension The patient's hypertension is well-controlled with amlodipine and losartan. 6. Gastroesophageal Reflux Disease The patient uses omeprazole as needed for acid reflux management. 7. Allergic Rhinitis The patient takes loratadine as needed for allergy symptoms. Orders: Orders AMB Hemoglobin A1c Today Z13.9 - Encounter for screening, unspecified Lipid Panel 4 Months E78.5 - Hyperlipidemia, unspecified Comprehensive [place]. Panel Fast 4 Months E11.9 - Type 2 diabetes mellitus without complications Microalbumin, Random (w Creat) 4 Months R80.9 - Proteinuria, unspecified Vitamin D 25-OH Total 4 Months E55.9 - Vitamin D deficiency, unspecified Vitamin B12 and Folate 4 Months E53.8 - Deficiency of other specified B group vitamins
[2025-03-27 14:43] VITALS: BP 126/80; PULSE 79; O2SAT 98; BMI 26.5
== END 2025-03-27 15:26 | disposition home or self-care (01) ==
LOC: HO.HMCH 14:37
PROVIDERS: PCP Internal Medicine; Visit Provider Internal Medicine
DX: I10 Essential (primary) hypertension (principal); E78.00 Pure hypercholesterolemia, unspecified; E11.9 Type 2 diabetes mellitus without complications; K21.9 Gastro-esophageal reflux disease without esophagitis; Z13.9 Encounter for screening, unspecified

== ENCOUNTER → 2025-03-27 14:36 | Outpatient (BNVA) | payer OTHER, SELFPAY | PROVIDERS: PCP Internal Medicine; Visit Provider Internal Medicine | DX: I10 Essential (primary) hypertension (principal); E78.00 Pure hypercholesterolemia, unspecified; E11.9 Type 2 diabetes mellitus without complications; K21.9 Gastro-esophageal reflux disease without esophagitis; R32 Unspecified urinary incontinence; J30.9 Allergic rhinitis, unspecified; Z79.84 Long term (current) use of oral hypoglycemic drugs; Z79.899 Other long term (current) drug therapy | CPT/HCPCS: 83036; 99212 ==